=== PATIENT | female | born 1960 | race Caucasian/White ===

== ENCOUNTER 2017-04-28 20:12 | Emergency (ER) | payer MEDICAID ==
[2017-04-28 20:21] VITALS: BP 160/86
[2017-04-28] MEDS ORDERED: Sodium Chloride 0.9% 10 ML Syringe FLUSH PRN (20:25)
[2017-04-28] MEDS ORDERED: diphenhydrAMINE 50 MG/ML SDV IVPUSH ONE (20:26)
[2017-04-28] MEDS ORDERED: Metoclopramide 10 MG/2 ML SDV IVPUSH ONE (20:26)
[2017-04-28] MEDS ORDERED: HYDROmorphone 1 MG/ML Syringe IVPUSH ONE (20:27)
--- NOTE | 2017-04-28 21:50 | EDM.PDOC ---
ED HPI GENERAL MEDICAL PROBLEM - General Chief Complaint: Headache Stated Complaint: MIGRAINE Time Seen by Provider: 04/28/17 20:21 Source of Information: Reports: Patient History Limitations: Reports: No Limitations - History of Present Illness INITIAL COMMENTS - FREE TEXT/NARRATIVE: The patient presents with a headache. The pain is behind the left eye. This started this morning about 6am. The pain comes and goes. It is now severe. She denies fever, chills, cough, nausea, vomiting, chest pain, abdominal pain, numbness, or weakness. 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 She was seen in [place] and they did coils. Onset: Gradual Duration: Hour(s): (Since 6am) Location: Reports: Head Quality: Reports: Sharp Severity: Severe Improves with: Reports: None Worsens with: Reports: None Associated Symptoms: Reports: No Other Symptoms Headache Pain Score (Numeric/FACES): 10 - Related Data Allergies Allergy/AdvReac Type Severity Reaction Status Date / Time acetaminophen AdvReac Tachycardia Verified 06/04/16 13:12 [From Tylenol-Codeine #3] codeine phosphate AdvReac Tachycardia Verified 06/04/16 13:12 [From Tylenol-Codeine #3] Home Meds: Home Meds Aspirin [Aspirin EC] 81 mg PO DAILY 04/28/16 [History] Linagliptin [Tradjenta] 5 mg PO DAILY 04/28/17 [History] Losartan [Cozaar] 50 mg PO DAILY 04/28/17 [History] Metoprolol Succinate [Toprol XL] 50 mg PO DAILY 04/28/17 [History] atorvaSTATin [Lipitor] 20 mg PO BEDTIME 04/28/17 [History] metFORMIN [Glucophage XR] 1,000 mg PO BIDMEALS 04/28/17 [History] Past Medical History HEENT History: Reports: Impaired Vision, Sinusitis Cardiovascular History: Reports: Hypertension, SOB on Exertion Other Cardiovascular History: states has hole in her heart. hx of palpitations Respiratory History: Reports: Other (See Below) Other Respiratory History: sob with exertion recently Gastrointestinal History: Reports: GERD Other Gastrointestinal History: noted blood in emesis when vomited since thursday Genitourinary History: Reports: None Musculoskeletal History: Reports: Back Pain, Chronic, Neck Pain, Chronic Other Musculoskeletal History: chronic neck and back pain Neurological History: Reports: CVA Other Neuro History: states had cva in 1999 Psychiatric History: Reports: Anxiety, Panic Attack Other Psychiatric History: claustraphobia Endocrine/Metabolic History: Reports: Diabetes, Type II, Obesity/BMI 30+ Oncologic (Cancer) History: Reports: Cervix - Past Surgical History Female Surgical History: Reports: Cervical Conization, Hysterectomy, Tubal Ligation Neurological Surgical History: Reports: C-Spine, Lumbar Spine, Other (See Below) Other Neurological Surgeries/Procedures: 2 brain stents placed 2015 Musculoskeletal Surgical History: Reports: Knee Replacement Social & Family History - Family History Family Medical History: Noncontributory - Tobacco Use Smoking Status *Q: Never Smoker Years of Tobacco use: 8 Packs/Tins Daily: 0.5 Second Hand Smoke Exposure: No - Caffeine Use Caffeine Use: Reports: Coffee - Recreational Drug Use Recreational Drug Use: No - Living Situation & Occupation Living situation: Reports: , with Family Occupation: Employed ED ROS GENERAL - Review of Systems Review Of Systems: See Below Constitutional: Reports: No Symptoms HEENT: Reports: No Symptoms Respiratory: Reports: No Symptoms Cardiovascular: Reports: No Symptoms Endocrine: Reports: No Symptoms GI/Abdominal: Reports: No Symptoms : Reports: No Symptoms Musculoskeletal: Reports: No Symptoms Skin: Reports: No Symptoms Neurological: Reports: Headache - Physical Exam Exam: See Below Exam Limited By: No Limitations General Appearance: Alert, No Apparent Distress Ears: Normal External Exam Nose: Normal Inspection Head Exam: Atraumatic, Normocephalic Neck: Normal Inspection Respiratory/Chest: No Respiratory Distress, Lungs Clear, Normal Breath Sounds Cardiovascular: Regular Rate, Rhythm, No Edema, No Murmur GI/Abdominal: Soft, Non-Tender, No Organomegaly, No Mass Neuro Exam (Abbreviated): Alert, Oriented, No Motor/Sensory Deficits Course - Vital Signs Last Recorded V/S: Last Vital Signs Temp 97.1 F 04/28/17 20:18 Pulse 104 H 04/28/17 20:18 Resp 25 H 04/28/17 20:18 BP 160/86 H 04/28/17 20:18 Pulse Ox 96 04/28/17 20:18 - Orders/Labs/Meds Orders: Active Orders 24 hr Category Date Time Status Peripheral IV Care [RC] . DIRECTED Care 04/28/17 20:25 Active Head wo Cont [CT] Stat Exams 04/28/17 20:27 Taken Sodium Chloride 0.9% [Saline Flush] Med 04/28/17 20:25 Active 10 ml FLUSH ASDIRECTED PRN Peripheral IV Insertion Adult [OM.PC] Routine Oth 04/28/17 20:25 Ordered Medication Orders Sodium Chloride (Saline Flush) 10 ml FLUSH ASDIRECTED PRN PRN Reason: Keep Vein Open Last Admin: 04/28/17 21:13 Dose: 10 ml Meds: Medications Generic Name Dose Route Start Last Admin Trade Name Freq PRN Reason Stop Dose Admin Sodium Chloride 10 ml 04/28/17 20:25 04/28/17 21:13 Saline Flush FLUSH 10 ml ASDIRECTED PRN Administration Keep Vein Open Discontinued Medications Generic Name Dose Route Start Last Admin Trade Name Freq PRN Reason Stop Dose Admin Diphenhydramine HCl 50 mg 04/28/17 20:26 04/28/17 21:12 Benadryl IVPUSH 04/28/17 20:27 50 mg ONETIME ONE Administration Hydromorphone HCl 1 mg 04/28/17 20:27 04/28/17 21:13 Dilaudid IVPUSH 04/28/17 20:28 1 mg ONETIME ONE Administration Metoclopramide HCl 10 mg 04/28/17 20:26 04/28/17 21:10 Reglan IVPUSH 04/28/17 20:27 10 mg ONETIME ONE Administration - Re-Assessments/Exams Free Text/Narrative Re-Assessment/Exam: 04/28/17 21:49 I ordered an IV saline lock, reglan 10mg IV, dilaudid 1mg IV and benadryl 50mg IV. I also ordered a CT of her head. 04/28/17 21:55 The patient feels much better. She tells me that since her aneurysm she gets headaches every day. They usually do not get this bad. She is following up with Shelly Johnson next week. She will talk to her about it. She may need an MRI or neuro consult. Departure - Departure Time of Disposition: 22:00 Disposition: Home, Self-Care 01 Condition: Good Clinical Impression: Headache Qualifiers: Headache type: unspecified Headache chronicity pattern: acute headache Intractability: not intractable Qualified Code(s): R51 - Headache - Discharge Information Referrals: Floberg,Shelly M, RE[employer] ACCOUNTANT [Primary Care Provider] - 1 Week Forms: ED Department Discharge Additional Instructions: Go home to a dark quiet room and get some rest. Follow up with Shelly Johnson next week and talk to her about the headaches you are having. Please return if you are worse. - My Orders Last 24 Hours: My Active Orders 04/28/17 20:25 Peripheral IV Care [RC] . DIRECTED Sodium Chloride 0.9% [Saline Flush] 10 ml FLUSH ASDIRECTED PRN Peripheral IV Insertion Adult [OM.PC] Routine 04/28/17 20:27 Head wo Cont [CT] Stat - Assessment/Plan Last 24 Hours: My Active Orders 04/28/17 20:25 Peripheral IV Care [RC] . DIRECTED Sodium Chloride 0.9% [Saline Flush] 10 ml FLUSH ASDIRECTED PRN Peripheral IV Insertion Adult [OM.PC] Routine 04/28/17 20:27 Head wo Cont [CT] Stat
--- NOTE | 2017-04-29 07:01 | CT ---
Head CT Technique: Multiple axial sections through the brain were obtained. Intravenous contrast was not utilized. Comparison: Prior head CT study of 01/19/16. Findings: Vascular stent is identified within the left carotid siphon extending into the left M1 segment. No evidence of intracranial hemorrhage. No midline shift or mass effect is seen. Ventricles along with basal cisterns and sulci over the convexities are within normal limits for the patient's age. Small area of encephalomalacia seen within the posterior right occipital lobe which is not seen on prior exam. No other abnormal parenchymal densities are seen. Bone window settings were reviewed which show no acute calvarial abnormality. Impression: 1. Vascular stent within the left carotid siphon extending into the left M1 segment. This is an interval change from prior exam. 2. Small area of encephalomalacia within the posterior right occipital lobe which is an interval change from prior study but appears to be old and occurring in the interim from prior exam. 3. Nothing acute is identified on noncontrast head CT study. Diagnostic code #2 I agree with preliminary report issued by [facility] ([facility] preliminary report dictated on 04/28/17, 10:41 PM Central Time)
== END 2017-04-28 22:10 | disposition home or self-care (01) ==
LOC: JD.ED 20:12
DX: R51 Headache (principal); I10 Essential (primary) hypertension; K21.9 Gastro-esophageal reflux disease without esophagitis; E11.9 Type 2 diabetes mellitus without complications; E66.9 Obesity, unspecified; Z85.41 Personal history of malignant neoplasm of cervix uteri; Z96.659 Presence of unspecified artificial knee joint; Z90.710 Acquired absence of both cervix and uterus; Z98.51 Tubal ligation status; Z98.890 Other specified postprocedural states; Z88.5 Allergy status to narcotic agent; Z88.6 Allergy status to analgesic agent; Z79.84 Long term (current) use of oral hypoglycemic drugs; Z79.82 Long term (current) use of aspirin; Z79.899 Other long term (current) drug therapy; Z86.73 Personal history of transient ischemic attack (TIA), and cerebral infarction without residual deficits; Z68.33 Body mass index [BMI] 33.0-33.9, adult
CPT/HCPCS: 70450; 96374; 96375; 99284; J1170; J1200; J2765; J7050

== ENCOUNTER 2017-05-10 03:30 | Emergency (ER) | payer MEDICAID ==
[2017-05-10] MEDS ORDERED: HYDROmorphone 1 MG/ML Syringe IM ONE (03:52)
[2017-05-10] MEDS ORDERED: Ondansetron 4 MG Tab.DIS PO ONE (03:55)
--- NOTE | 2017-05-10 03:56 | EDM.PDOC ---
ED HPI GENERAL MEDICAL PROBLEM - General Chief Complaint: Headache Stated Complaint: HEADACHE Time Seen by Provider: 05/10/17 03:36 Source of Information: Reports: Patient History Limitations: Reports: No Limitations - History of Present Illness INITIAL COMMENTS - FREE TEXT/NARRATIVE: This is a 56-year-old female. Back in January 2016 she had a aneurysm that bled and a small mini stroke. She was taken care of down in [place] and she has a neurologist there as well. Apparently over the last months she's been having some headaches that seem to be getting worse and she had onset of a headache last night and this seems to have gotten worse and worse. She states that it seems to be on the left side of her face sharp pain in her eye and maybe some numbness in her left cheek. She's also been slightly nauseated but no vomiting. She comes to the ER for evaluation. She just had an MRI of her brain that showed no acute findings but she does have suggestions of an old stroke. An ultrasound of her neck and thyroid showed an enlarged right thyroid lobe and her doctor and she know about this. She is supposed to see her neurologist regarding her headaches as they seem to be getting worse. Left Headache Pain Score (Numeric/FACES): 10 - Related Data Allergies Allergy/AdvReac Type Severity Reaction Status Date / Time acetaminophen AdvReac Tachycardia Verified 05/10/17 03:44 [From Tylenol-Codeine #3] codeine phosphate AdvReac Tachycardia Verified 05/10/17 03:44 [From Tylenol-Codeine #3] Home Meds: Home Meds Aspirin [Aspirin EC] 81 mg PO DAILY 04/28/16 [History] Linagliptin [Tradjenta] 5 mg PO DAILY 04/28/17 [History] Losartan [Cozaar] 50 mg PO DAILY 04/28/17 [History] Metoprolol Succinate [Toprol XL] 50 mg PO DAILY 04/28/17 [History] atorvaSTATin [Lipitor] 20 mg PO BEDTIME 04/28/17 [History] metFORMIN [Glucophage XR] 1,000 mg PO BIDMEALS 04/28/17 [History] Levothyroxine [Synthroid] 50 mcg PO DAILY 05/10/17 [History] Past Medical History HEENT History: Reports: Impaired Vision, Sinusitis Cardiovascular History: Reports: Hypertension, SOB on Exertion Other Cardiovascular History: states has hole in her heart. hx of palpitations Respiratory History: Reports: Other (See Below) Other Respiratory History: sob with exertion recently Gastrointestinal History: Reports: GERD Other Gastrointestinal History: noted blood in emesis when vomited since thursday Genitourinary History: Reports: None Musculoskeletal History: Reports: Back Pain, Chronic, Neck Pain, Chronic Other Musculoskeletal History: chronic neck and back pain Neurological History: Reports: CVA Other Neuro History: states had cva in 1999 Psychiatric History: Reports: Anxiety, Panic Attack Other Psychiatric History: claustraphobia Endocrine/Metabolic History: Reports: Diabetes, Type II, Obesity/BMI 30+ Oncologic (Cancer) History: Reports: Cervix - Past Surgical History Female Surgical History: Reports: Cervical Conization, Hysterectomy, Tubal Ligation Neurological Surgical History: Reports: C-Spine, Lumbar Spine, Other (See Below) Other Neurological Surgeries/Procedures: 2 brain stents placed 2015 Musculoskeletal Surgical History: Reports: Knee Replacement Social & Family History - Family History Family Medical History: Noncontributory - Tobacco Use Smoking Status *Q: Never Smoker Years of Tobacco use: 8 Packs/Tins Daily: 0.5 Second Hand Smoke Exposure: No - Caffeine Use Caffeine Use: Reports: Coffee - Recreational Drug Use Recreational Drug Use: No - Living Situation & Occupation Living situation: Reports: , with Family Occupation: Employed ED ROS GENERAL - Review of Systems Review Of Systems: See Below Constitutional: Denies: Fever, Chills HEENT: Reports: Other (Enlarged thyroid) Respiratory: Reports: No Symptoms Cardiovascular: Reports: No Symptoms Endocrine: Reports: No Symptoms GI/Abdominal: Reports: No Symptoms : Reports: No Symptoms Musculoskeletal: Reports: No Symptoms Skin: Reports: No Symptoms Neurological: Reports: Headache Psychiatric: Reports: No Symptoms Hematologic/Lymphatic: Reports: No Symptoms Immunologic: Reports: No Symptoms - Physical Exam Exam: See Below Exam Limited By: No Limitations General Appearance: Alert, WD/WN, Mild Distress Eye Exam: Bilateral Eye: Normal Inspection Ears: Normal External Exam Nose: Normal Inspection Throat/Mouth: Normal Inspection, Normal Lips, Normal Voice, No Airway Compromise Head Exam: Normocephalic Neck: Supple, Other (Noted enlargement of the right thyroid lobe) Respiratory/Chest: No Respiratory Distress, Lungs Clear, Normal Breath Sounds Cardiovascular: Regular Rate, Rhythm, No Murmur Neuro Exam (Abbreviated): Alert, Oriented, Normal Cognition. No: Confused, Disoriented, Slow to Respond Back Exam: Full Range of Motion Extremities: Normal Inspection, Normal Range of Motion Psychiatric: Normal Affect, Normal Mood Skin Exam: Warm, Dry Course - Vital Signs Last Recorded V/S: Last Vital Signs Temp 97.9 F 05/10/17 03:35 Pulse 91 05/10/17 03:35 Resp 16 05/10/17 03:35 BP 155/85 H 05/10/17 03:35 Pulse Ox 97 05/10/17 03:35 - Re-Assessments/Exams Free Text/Narrative Re-Assessment/Exam: 05/10/17 03:51 I gave the patient the option to get a shot IM for pain and nausea and to go home and go to sleep or get an IV and get fluids and medications for her headache and stay here in the ER for a while. She is opted to get the shot for the pain and nausea. I did encourage her to drink lots of water since dehydration will aggravate headaches and make them worse. Departure - Departure Time of Disposition: 03:55 Disposition: Home, Self-Care 01 Condition: Fair Clinical Impression: Left-sided headache - Discharge Information Referrals: Shelly Johnson, H[employer] [Primary Care Provider] - Additional Instructions: We need get home go to sleep and sleep as long as you can, when you wake up make sure you drink lots of water to stay well hydrated, you need to follow up with your neurologist or use call him to let him know you starting to have some headaches, return to the ER if your symptoms worsen
[2017-05-10 04:37] VITALS: BP 155/88
== END 2017-05-10 04:30 | disposition home or self-care (01) ==
LOC: JD.ED 03:30
DX: R51 Headache (principal); I10 Essential (primary) hypertension; K21.9 Gastro-esophageal reflux disease without esophagitis; F41.9 Anxiety disorder, unspecified; E11.9 Type 2 diabetes mellitus without complications; E66.9 Obesity, unspecified; Z88.6 Allergy status to analgesic agent; Z88.5 Allergy status to narcotic agent; Z79.82 Long term (current) use of aspirin; Z79.899 Other long term (current) drug therapy; Z79.84 Long term (current) use of oral hypoglycemic drugs; Z86.73 Personal history of transient ischemic attack (TIA), and cerebral infarction without residual deficits; Z90.710 Acquired absence of both cervix and uterus; Z96.659 Presence of unspecified artificial knee joint; Z68.33 Body mass index [BMI] 33.0-33.9, adult
CPT/HCPCS: 96372; 99283; A9270; J1170

== ENCOUNTER → 2017-10-01 | Day surgery (SDC) | payer MEDICAID ==
[~2017-10-01] MED LIST: Phenylephrine 2.5% Ophth Soln 2 ML Bot EYEBOTH SCH
[2017-10-01] MEDS: Brimonidine 0.2% Ophth Soln 5 ML Bottle EYEBOTH SCH ×2 (10:16→11:12)
[2017-10-01 12:33] VITALS: BP 157/82
== END ==
LOC: JD.SDS 10:00
PROVIDERS: ATTEND Ophthalmology
DX: H26.493 Other secondary cataract, bilateral (principal); H35.373 Puckering of macula, bilateral; H35.342 Macular cyst, hole, or pseudohole, left eye; E11.9 Type 2 diabetes mellitus without complications; I10 Essential (primary) hypertension; E07.9 Disorder of thyroid, unspecified; Z79.82 Long term (current) use of aspirin; Z96.1 Presence of intraocular lens; Z85.41 Personal history of malignant neoplasm of cervix uteri; Z86.73 Personal history of transient ischemic attack (TIA), and cerebral infarction without residual deficits; Z79.899 Other long term (current) drug therapy

== ENCOUNTER → 2018-02-04 | Day surgery (SDC) | payer MEDICAID ==
[~2018-02-04] MED LIST changes: +Brimonidine 0.2% Ophth Soln 5 ML Bottle EYELF SCH; -Phenylephrine 2.5% Ophth Soln 2 ML Bot EYEBOTH SCH; +Phenylephrine 2.5% Ophth Soln 2 ML Bot EYELF SCH; +Tropicamide 1% Ophth Soln 3 ML Bottle EYELF SCH
[2018-02-04 12:55] VITALS: BP 125/73
== END ==
LOC: JD.SDS 11:48
PROVIDERS: ATTEND Ophthalmology
DX: H26.492 Other secondary cataract, left eye (principal); H35.3131 Nonexudative age-related macular degeneration, bilateral, early dry stage; H35.342 Macular cyst, hole, or pseudohole, left eye; H35.373 Puckering of macula, bilateral; E11.9 Type 2 diabetes mellitus without complications; E07.9 Disorder of thyroid, unspecified; C53.9 Malignant neoplasm of cervix uteri, unspecified; Z79.82 Long term (current) use of aspirin; Z79.899 Other long term (current) drug therapy; Z88.5 Allergy status to narcotic agent; Z88.8 Allergy status to other drugs, medicaments and biological substances; Z98.41 Cataract extraction status, right eye; Z98.42 Cataract extraction status, left eye; Z96.1 Presence of intraocular lens; Z98.890 Other specified postprocedural states; Z83.518 Family history of other specified eye disorder

== ENCOUNTER 2018-05-16 12:56 | Emergency (ER) | payer MEDICAID ==
[2018-05-16 13:04] VITALS: BP 150/74
[2018-05-16] MEDS ORDERED: Sodium Chloride 0.9% 10 ML Syringe FLUSH PRN (13:18)
[2018-05-16] MEDS ORDERED: Sodium Chloride 0.9% 1,000 ML IV SCH (13:30)
[2018-05-16] MEDS ORDERED: HYDROmorphone 0.5 MG/0.5 ML SYRINGE IVPUSH ONE (13:46)
[2018-05-16] MEDS ORDERED: Iopamidol 755 Mg/ML 100 ML Bottle IVPUSH ONE (14:02)
[2018-05-16] MEDS ORDERED: Sodium Chloride 0.9% 10 ML Syringe FLUSH ONE (14:02)
[2018-05-16] MEDS ORDERED: Sodium Chloride 0.9% 100 ML IV SCH (14:15)
--- NOTE | 2018-05-16 14:25 | EDM.PDOC ---
ED HPI GENERAL MEDICAL PROBLEM - General Chief Complaint: Back Pain or Injury Stated Complaint: LEFT SIDE/NECK PAIN Time Seen by Provider: 05/16/18 13:05 Source of Information: Reports: Patient History Limitations: Reports: No Limitations - History of Present Illness INITIAL COMMENTS - FREE TEXT/NARRATIVE: The patient presents from the [facility] for left sided rib and back pain. This started a few days ago. She denies any injury such as falling or lifting. She says it hurts worse to take a deep breath. She has no fever or cough. She does have some pain that radiates to her left chest and then up her back to her neck. She has no abdominal pain, nausea or vomiting. About 2 years ago she had an aneurysm and had to go to [place]. She has had no problems since. The patient has no history of DVT or PE. She has not been on any long car ride or plane ride. She has no swelling or pain in her legs. Dr King saw her at the clinic and thought she needed a CT angio of her chest. Onset: Gradual Duration: Day(s): Location: Reports: Chest, Back Quality: Reports: Sharp Severity: Severe Improves with: Reports: Immobilization Worsens with: Reports: Breathing, Movement Associated Symptoms: Reports: Chest Pain, Shortness of Breath. Denies: Cough, Fever/Chills, Headaches, Nausea/Vomiting Left Back Pain Score (Numeric/FACES): 10 - Related Data Allergies Allergy/AdvReac Type Severity Reaction Status Date / Time acetaminophen AdvReac Tachycardia Verified 02/03/18 14:55 [From Tylenol-Codeine #3] codeine phosphate AdvReac Tachycardia Verified 02/03/18 14:55 [From Tylenol-Codeine #3] Home Meds: Home Meds Aspirin [Aspirin EC] 81 mg PO DAILY 04/28/16 [History] Losartan [Cozaar] 50 mg PO DAILY 04/28/17 [History] Metoprolol Succinate [Toprol XL] 50 mg PO DAILY 04/28/17 [History] Levothyroxine [Synthroid] 50 mcg PO DAILY 05/10/17 [History] metFORMIN HCl [Metformin HCl] 1,000 mg PO DAILY 02/03/18 [History] Empagliflozin [Jardiance] 25 mg PO DAILY 05/16/18 [History] Linagliptin [Tradjenta] 5 mg PO DAILY 05/16/18 [History] atorvaSTATin Calcium [Lipitor] 20 mg PO DAILY 05/16/18 [History] Past Medical History HEENT History: Reports: Impaired Vision, Sinusitis Cardiovascular History: Reports: Hypertension, SOB on Exertion Other Cardiovascular History: states has hole in her heart. hx of palpitations Respiratory History: Reports: Other (See Below) Other Respiratory History: sob with exertion recently Gastrointestinal History: Reports: GERD Other Gastrointestinal History: noted blood in emesis when vomited since thursday Genitourinary History: Reports: None Musculoskeletal History: Reports: Back Pain, Chronic, Neck Pain, Chronic Other Musculoskeletal History: chronic neck and back pain Neurological History: Reports: CVA Other Neuro History: states had cva in 1999 Psychiatric History: Reports: Anxiety, Panic Attack Other Psychiatric History: claustraphobia Endocrine/Metabolic History: Reports: Diabetes, Type II, Obesity/BMI 30+ Oncologic (Cancer) History: Reports: Cervix - Past Surgical History Female Surgical History: Reports: Cervical Conization, Hysterectomy, Tubal Ligation Neurological Surgical History: Reports: C-Spine, Lumbar Spine, Other (See Below) Other Neurological Surgeries/Procedures: 2 brain stents placed 2015 Musculoskeletal Surgical History: Reports: Knee Replacement Social & Family History - Family History Family Medical History: Noncontributory - Tobacco Use Smoking Status *Q: Never Smoker - Caffeine Use Caffeine Use: Reports: Coffee, Soda - Recreational Drug Use Recreational Drug Use: No - Living Situation & Occupation Living situation: Reports: , with Family Occupation: Employed ED ROS GENERAL - Review of Systems Review Of Systems: See Below Constitutional: Reports: No Symptoms HEENT: Reports: No Symptoms Respiratory: Reports: Shortness of Breath. Denies: Cough Cardiovascular: Reports: Chest Pain Endocrine: Reports: No Symptoms GI/Abdominal: Reports: No Symptoms : Reports: No Symptoms Musculoskeletal: Reports: Back Pain (Left side) ED EXAM, UPPER BACK/NECK PAIN - Physical Exam Exam: See Below Exam Limited By: No Limitations General Appearance: Alert, No Apparent Distress Ears Exam: Normal External Exam Nose Exam: Normal Inspection Head Exam: Atraumatic, Normocephalic Neck Exam: Non-Tender, Normal Alignment, Normal Inspection Cardiovascular/Respiratory: Regular Rate, Rhythm, No M/R/G, Normal Peripheral Pulses, Normal Breath Sounds, No Respiratory Distress, Other (Pain upon palpation to the left lateral chest and into the left upper back) GI/Abdominal: Soft, Non-Tender, No Organomegaly, No Mass Back Exam: Normal Inspection Extremities: Normal Inspection Neurologic: No Motor/Sensory Deficits, Alert, Normal Mood/Affect, Oriented x 3 EKG INTERPRETATION EKG Date: 05/16/18 Time: 13:32 Rhythm: NSR Rate (Beats/Min): 96 [place]: Normal P-Wave: Present QRS: Normal ST-T: Normal QT: Normal Course - Vital Signs Last Recorded V/S: Last Vital Signs Temp 98.6 F 05/16/18 13:03 Pulse 96 05/16/18 13:03 Resp 20 05/16/18 13:03 BP 150/74 H 05/16/18 13:03 Pulse Ox 97 05/16/18 13:03 - Orders/Labs/Meds Orders: Active Orders 24 hr Category Date Time Status Cardiac Monitoring [RC] . DIRECTED Care 05/16/18 13:18 Active EKG Documentation Completion [RC] STAT Care 05/16/18 13:19 Active Peripheral IV Care [RC] . DIRECTED Care 05/16/18 13:19 Active Sodium Chloride 0.9% [Normal Saline] 1,000 ml Med 05/16/18 13:30 Active IV ASDIRECTED Sodium Chloride 0.9% [Normal Saline] 100 ml Med 05/16/18 14:15 Active IV ASDIRECTED Sodium Chloride 0.9% [Saline Flush] Med 05/16/18 13:18 Active 10 ml FLUSH ASDIRECTED PRN Peripheral IV Insertion Adult [OM.PC] Stat Oth 05/16/18 13:18 Ordered Medication Orders Sodium Chloride (Normal Saline) 1,000 mls @ 125 mls/hr IV ASDIRECTED LAUREANO Last Admin: 05/16/18 13:39 Dose: 125 mls/hr Sodium Chloride (Normal Saline) 100 mls @ 60 mls/hr IV ASDIRECTED LAUREANO Last Admin: 05/16/18 14:15 Dose: 60 mls/hr Sodium Chloride (Saline Flush) 10 ml FLUSH ASDIRECTED PRN PRN Reason: Keep Vein Open Last Admin: 05/16/18 13:40 Dose: 10 ml Labs: Laboratory Tests 05/16/18 05/16/18 05/16/18 Range/Units 13:45 13:45 13:45 WBC 6.05 (3.98-10.04) K/mm3 RBC 4.55 (3.98-5.22) M/mm3 Hgb 12.9 (11.2-15.7) gm/L Hct 39.1 (34.1-44.9) % MCV 85.9 (79.4-94.8) fl MCH 28.4 (25.6-32.2) pg MCHC 33.0 (32.2-35.5) g/dl RDW Std Deviation 49.2 H (36.4-46.3) fL Plt Count 159 L (182-369) K/mm3 MPV 10.6 (9.4-12.3) fl Neut % (Auto) 62.5 (34.0-71.1) % Lymph % (Auto) 28.9 (19.3-51.7) % [place] % (Auto) 7.4 (4.7-12.5) % Eos % (Auto) 0.8 (0.7-5.8) Baso % (Auto) 0.2 (0.1-1.2) % Neut # (Auto) 3.78 (1.56-6.13) K/mm3 Lymph # (Auto) 1.75 (1.18-3.74) K/mm3 [place] # (Auto) 0.45 H (0.24-0.36) K/mm3 Eos # (Auto) 0.05 (0.04-0.36) K/mm3 Baso # (Auto) 0.01 (0.01-0.08) K/mm3 D-Dimer, Quantitative 0.74 H (0.19-0.50) mg/L Sodium 144 (136-145) mEq/L Potassium 4.2 (3.5-5.1) mEq/L Chloride 106 (98-107) mEq/L Carbon Dioxide 26 (21-32) mEq/L Anion Gap 16.2 H (5-15) BUN 11 (7-18) mg/dL Creatinine 0.9 (0.55-1.02) mg/dL Est Cr Clr Drug Dosing 51.41 mL/min Estimated GFR (MDRD) > 60 (>60) mL/min BUN/Creatinine Ratio 12.2 L (14-18) Glucose 124 H (74-106) mg/dL Calcium 9.4 (8.5-10.1) mg/dL Total Bilirubin 1.0 (0.2-1.0) mg/dL AST 21 (15-37) U/L ALT 42 (14-59) U/L Alkaline Phosphatase 114 (46-116) U/L Troponin I < 0.017 (0.00-0.056) ng/mL Total Protein 8.1 (6.4-8.2) g/dl Albumin 4.0 (3.4-5.0) g/dl Globulin 4.1 gm/dL Albumin/Globulin Ratio 1.0 (1-2) TSH 3rd Generation (0.358-3.74) uIU/mL 05/16/18 Range/Units 13:45 WBC (3.98-10.04) K/mm3 RBC (3.98-5.22) M/mm3 Hgb (11.2-15.7) gm/L Hct (34.1-44.9) % MCV (79.4-94.8) fl MCH (25.6-32.2) pg MCHC (32.2-35.5) g/dl RDW Std Deviation (36.4-46.3) fL Plt Count (182-369) K/mm3 MPV (9.4-12.3) fl Neut % (Auto) (34.0-71.1) % Lymph % (Auto) (19.3-51.7) % [place] % (Auto) (4.7-12.5) % Eos % (Auto) (0.7-5.8) Baso % (Auto) (0.1-1.2) % Neut # (Auto) (1.56-6.13) K/mm3 Lymph # (Auto) (1.18-3.74) K/mm3 [place] # (Auto) (0.24-0.36) K/mm3 Eos # (Auto) (0.04-0.36) K/mm3 Baso # (Auto) (0.01-0.08) K/mm3 D-Dimer, Quantitative (0.19-0.50) mg/L Sodium (136-145) mEq/L Potassium (3.5-5.1) mEq/L Chloride (98-107) mEq/L Carbon Dioxide (21-32) mEq/L Anion Gap (5-15) BUN (7-18) mg/dL Creatinine (0.55-1.02) mg/dL Est Cr Clr Drug Dosing mL/min Estimated GFR (MDRD) (>60) mL/min BUN/Creatinine Ratio (14-18) Glucose (74-106) mg/dL Calcium (8.5-10.1) mg/dL Total Bilirubin (0.2-1.0) mg/dL AST (15-37) U/L ALT (14-59) U/L Alkaline Phosphatase (46-116) U/L Troponin I (0.00-0.056) ng/mL Total Protein (6.4-8.2) g/dl Albumin (3.4-5.0) g/dl Globulin gm/dL Albumin/Globulin Ratio (1-2) TSH 3rd Generation 1.721 (0.358-3.74) uIU/mL Meds: Medications Generic Name Dose Route Start Last Admin Trade Name Freq PRN Reason Stop Dose Admin Sodium Chloride 1,000 mls @ 125 mls/hr 05/16/18 13:30 05/16/18 13:39 Normal Saline IV 125 mls/hr ASDIRECTED LAUREANO Administration Sodium Chloride 100 mls @ 60 mls/hr 05/16/18 14:15 05/16/18 14:15 Normal Saline IV 60 mls/hr ASDIRECTED LAUREANO Administration Sodium Chloride 10 ml 05/16/18 13:18 05/16/18 13:40 Saline Flush FLUSH 10 ml ASDIRECTED PRN Administration Keep Vein Open Discontinued Medications Generic Name Dose Route Start Last Admin Trade Name Freq PRN Reason Stop Dose Admin Hydromorphone HCl 0.5 mg 05/16/18 13:46 05/16/18 14:46 Dilaudid IVPUSH 05/16/18 13:47 0.5 mg ONETIME ONE Administration Iopamidol 100 ml 05/16/18 14:02 05/16/18 14:15 Isovue-370 (76%) IVPUSH 05/16/18 14:03 100 ml ONETIME ONE Administration Sodium Chloride 10 ml 05/16/18 14:02 05/16/18 14:15 Saline Flush FLUSH 05/16/18 14:03 10 ml ONETIME ONE Administration - Re-Assessments/Exams Free Text/Narrative Re-Assessment/Exam: 05/16/18 14:28 I ordered an IV NS at 125mL/hr, dilaudid 0.5mg IV, labs, chest CT and EKG. Her EKG shows a NSR with no acute changes. Her CBC looks good. I am waiting on the rest of her labs and CT. 05/16/18 16:04 Her CBC looks good. Her CMP looks good. Her troponin is negative. Her CT shows slightly less than optimal opacification of the pulmonary arteries. No findings of pulmonary embolism within the main or segmental branches but smaller subsegmental pulmonary emboli could be missed. Small left-sided pleural effusion. 3 cm nodule within the right lobe of the thyroid gland. The patient is hypothyroid. She has never had an US of her thyroid. I will put in a US order for that. That has nothing to do with her current pain. I feel this is musculoskeletal in nature. Departure - Departure Time of Disposition: 16:45 Disposition: Home, Self-Care 01 Condition: Good Clinical Impression: Chest wall pain, Upper back pain on left side, Thyroid nodule - Discharge Information *PRESCRIPTION DRUG MONITORING PROGRAM REVIEWED*: No *COPY OF PRESCRIPTION DRUG MONITORING REPORT IN PATIENT CHIQUI: No Referrals: Shelly Johnson, INTERNAL MEDICINE PHYSICIAN ASSISTANT [Primary Care Provider] - 1 Week Forms: ED Department Discharge Additional Instructions: Take motrin or aleve for pain. Take the ultram for pain. Our radiology department will call you with a time to come in for the ultrasound of the nodule in your thyroid. Please return if you are worse. - My Orders Last 24 Hours: My Active Orders 05/16/18 13:18 Cardiac Monitoring [RC] . DIRECTED Sodium Chloride 0.9% [Saline Flush] 10 ml FLUSH ASDIRECTED PRN Peripheral IV Insertion Adult [OM.PC] Stat 05/16/18 13:19 EKG Documentation Completion [RC] STAT Peripheral IV Care [RC] . DIRECTED 05/16/18 13:30 Sodium Chloride 0.9% [Normal Saline] 1,000 ml IV ASDIRECTED 05/16/18 14:15 Sodium Chloride 0.9% [Normal Saline] 100 ml IV ASDIRECTED - Assessment/Plan Last 24 Hours: My Active Orders 05/16/18 13:18 Cardiac Monitoring [RC] . DIRECTED Sodium Chloride 0.9% [Saline Flush] 10 ml FLUSH ASDIRECTED PRN Peripheral IV Insertion Adult [OM.PC] Stat 05/16/18 13:19 EKG Documentation Completion [RC] STAT Peripheral IV Care [RC] . DIRECTED 05/16/18 13:30 Sodium Chloride 0.9% [Normal Saline] 1,000 ml IV ASDIRECTED 05/16/18 14:15 Sodium Chloride 0.9% [Normal Saline] 100 ml IV ASDIRECTED
--- NOTE | 2018-05-16 15:50 | CT ---
CT chest Technique: Multiple axial sections were obtained from above the lung apices inferiorly through the lung bases. Intravenous contrast was utilized. Study performed as a pulmonary angiogram protocol. Findings: Pulmonary arteries are not optimally opacified. Right thyroid nodule is identified measuring approximately 3.0 cm. Pulmonary arteries show no filling defects within the main or segmental branches. Smaller subsegmental pulmonary emboli could easily be missed. Very minimal left sided pleural effusion is seen. Mediastinum and hilar regions show no adenopathy or mass. Lungs shows mild atelectasis is noted within both bases. Lungs otherwise are clear. Bone window settings were reviewed which show scattered degenerative change within the spine. No acute osseous abnormality is seen. Impression: 1. Slightly less than optimal opacification of the pulmonary arteries. No findings of pulmonary embolism within the main or segmental branches but smaller subsegmental pulmonary emboli could be missed. 2. Small left-sided pleural effusion. 3. 3.0 cm nodule within the right lobe of the thyroid gland. Diagnostic code #3
== END 2018-05-16 17:15 | disposition home or self-care (01) ==
LOC: JD.ED 12:56
DX: R07.89 Other chest pain (principal); M54.6 Pain in thoracic spine; E04.1 Nontoxic single thyroid nodule; I10 Essential (primary) hypertension; E11.9 Type 2 diabetes mellitus without complications; Z79.82 Long term (current) use of aspirin; Z79.899 Other long term (current) drug therapy; Z79.84 Long term (current) use of oral hypoglycemic drugs
CPT/HCPCS: 36415; 71275; 80053; 84443; 84484; 85025; 85379; 93005; 96361; 96374; 99284; J1170; J7030; J7040; J7050; Q9967

== ENCOUNTER 2019-01-27 18:42 | Emergency (ER) | payer MEDICAID ==
[2019-01-27 18:57] VITALS: BP 139/124
[2019-01-27] MEDS ORDERED: HYDROmorphone 0.5 MG/0.5 ML Syringe IM ONE (19:26)
--- NOTE | 2019-01-27 19:38 | EDM.PDOC ---
ED HPI GENERAL MEDICAL PROBLEM - General Chief Complaint: Lower Extremity Injury/Pain Stated Complaint: LEG PAIN FROM FALL Time Seen by Provider: 01/27/19 19:17 Source of Information: Reports: Patient History Limitations: Reports: No Limitations - History of Present Illness INITIAL COMMENTS - FREE TEXT/NARRATIVE: 58-year-old female presents for evaluation and treatment of left leg pain. Patient reports that she was walking down some stairs when her left leg gave out. She states that she fell down about 3 stairs. Sounds like she landed on the left lateral leg. She denies any head trauma. No headaches or neck pain. No chest pain. She reports that she is having significant pain to the entire left leg but is primarily in the proximal tibia and tibia. She repeats over and over that she broke her leg. States she cannot bear weight. Onset: Today Location: Reports: Lower Extremity, Left Left Leg Pain Score (Numeric/FACES): 10 - Related Data Allergies Allergy/AdvReac Type Severity Reaction Status Date / Time acetaminophen AdvReac Tachycardia Verified 01/27/19 18:56 [From Tylenol-Codeine #3] codeine phosphate AdvReac Tachycardia Verified 01/27/19 18:56 [From Tylenol-Codeine #3] Home Meds: Home Meds Aspirin [Aspirin EC] 81 mg PO DAILY 04/28/16 [History] Losartan [Cozaar] 50 mg PO DAILY 04/28/17 [History] Metoprolol Succinate [Toprol XL] 50 mg PO DAILY 04/28/17 [History] Levothyroxine [Synthroid] 50 mcg PO DAILY 05/10/17 [History] metFORMIN HCl [Metformin HCl] 1,000 mg PO DAILY 02/03/18 [History] Empagliflozin [Jardiance] 25 mg PO DAILY 05/16/18 [History] Linagliptin [Tradjenta] 5 mg PO DAILY 05/16/18 [History] atorvaSTATin Calcium [Lipitor] 20 mg PO DAILY 05/16/18 [History] Past Medical History HEENT History: Reports: Impaired Vision, Sinusitis Cardiovascular History: Reports: Hypertension, SOB on Exertion Other Cardiovascular History: states has hole in her heart. hx of palpitations Respiratory History: Reports: Other (See Below) Other Respiratory History: sob with exertion recently Gastrointestinal History: Reports: GERD Other Gastrointestinal History: noted blood in emesis when vomited since thursday Genitourinary History: Reports: None Musculoskeletal History: Reports: Back Pain, Chronic, Neck Pain, Chronic Other Musculoskeletal History: chronic neck and back pain Neurological History: Reports: CVA Other Neuro History: states had cva in 1999 Psychiatric History: Reports: Anxiety, Panic Attack Other Psychiatric History: claustraphobia Endocrine/Metabolic History: Reports: Diabetes, Type II, Obesity/BMI 30+ Oncologic (Cancer) History: Reports: Cervix - Past Surgical History Female Surgical History: Reports: Cervical Conization, Hysterectomy, Tubal Ligation Neurological Surgical History: Reports: C-Spine, Lumbar Spine, Other (See Below) Other Neurological Surgeries/Procedures: 2 brain stents placed 2015 Musculoskeletal Surgical History: Reports: Knee Replacement Social & Family History - Family History Family Medical History: Noncontributory - Tobacco Use Smoking Status *Q: Never Smoker Second Hand Smoke Exposure: No - Caffeine Use Caffeine Use: Reports: None - Recreational Drug Use Recreational Drug Use: No - Living Situation & Occupation Living situation: Reports: , with Family Occupation: Employed Review of Systems - Review of Systems Review Of Systems: See Below Respiratory: Denies: Shortness of Breath Cardiovascular: Denies: Chest Pain GI/Abdominal: Denies: Nausea, Vomiting Musculoskeletal: Reports: Leg Pain (left). Denies: Neck Pain Neurological: Reports: Difficulty Walking. Denies: Headache, Syncope ED EXAM, GENERAL - Physical Exam Exam: See Below Exam Limited By: No Limitations General Appearance: Alert, WD/WN, Moderate Distress Eye Exam: Bilateral Eye: Normal Inspection, PERRL Throat/Mouth: Normal Inspection, Normal Voice, No Airway Compromise Neck: Normal Inspection, Supple, Non-Tender Respiratory/Chest: No Respiratory Distress, Lungs Clear, Normal Breath Sounds Cardiovascular: Normal Peripheral Pulses, Regular Rate, Rhythm, No Murmur Extremities: Normal Inspection (no obvious deformity), Normal Range of Motion, Normal Capillary Refill, Other (tenderness to palpation to the dorsal foot, proximal tibia/fibula and distal femur) Neurological: Alert, Oriented, Normal Cognition Psychiatric: Normal Affect, Normal Mood Skin Exam: Warm, Dry, Normal Color Course - Vital Signs Last Recorded V/S: Last Vital Signs Temp 99.2 F 01/27/19 18:55 Pulse 87 01/27/19 18:55 Resp 20 01/27/19 18:55 BP 139/124 H 01/27/19 18:55 Pulse Ox 96 01/27/19 18:55 - Orders/Labs/Meds Meds: Medications Discontinued Medications Generic Name Dose Route Start Last Admin Trade Name Mc PRN Reason Stop Dose Admin Hydromorphone HCl 0.5 mg 01/27/19 19:26 01/27/19 19:33 Dilaudid IM 01/27/19 19:27 0.5 mg ONETIME ONE Administration - Radiology Interpretation Free Text/Narrative:: xrays of the left foot, tib/fib, femur and hips and pelvis shows no acute fractures or dislocations - Re-Assessments/Exams Free Text/Narrative Re-Assessment/Exam: 01/27/19 21:10 Reviewed the xray results with te patient. Will get crutches due to significant pain and difficulty baring weight. Discharge instructions as documented. Departure - Departure Time of Disposition: 21:12 Disposition: Home, Self-Care 01 Condition: Good Clinical Impression: Fall, Leg pain - Discharge Information *PRESCRIPTION DRUG MONITORING PROGRAM REVIEWED*: No *COPY OF PRESCRIPTION DRUG MONITORING REPORT IN PATIENT CHIQUI: No Instructions: Musculoskeletal Pain Referrals: Shelly Johnson INTERNET RESEARCHER [Primary Care Provider] - Forms: ED Department Discharge Additional Instructions: You were given medication in the ER that can affect your ability to drive and operate machinery. Do not drive or operate machinery within 10 hours of taking perception narcotic pain medication. Recommend using the crutches for the next few days. Ice and elevate the sore leg to help with swelling as much as you're able to. [id number] ibuprofen as needed for pain relief. Expect Some soreness the next few days. If your symptoms persist beyond 10 days follow-up with your primary care provider. Please return to the ER if your symptoms change or worsen.
--- NOTE | 2019-01-28 06:08 | CR ---
Left foot: Four views of the left foot were obtained. Comparison: No previous foot exam. Joint spaces within the foot are preserved. Very minimal plantar spur is seen. Minimal spurring is noted within the first MTP joint. No acute fracture, dislocation or other bony abnormality is seen. Impression: 1. Slight degenerative change. 2. Nothing acute is appreciated on left foot exam. Diagnostic code #2
--- NOTE | 2019-01-28 06:08 | CR ---
Left femur: AP and lateral views of the left femur were obtained. Spur is noted off the superior patella. Slight osteophytes are noted off the medial and lateral knee joint. No fracture or other bony abnormality is seen. Impression: 1. Slight degenerative change. Nothing acute is appreciated on left femur study. Diagnostic code #2
--- NOTE | 2019-01-28 07:05 | CR ---
Left tibia and fibula: AP and lateral views left tibia and fibula were obtained. Slight spurring is again noted off the knee joint. No fracture or other bony abnormality is identified. Impression: 1. Slight degenerative change within the knee. 2. Left tibia and fibula study is otherwise unremarkable. Diagnostic code #2
--- NOTE | 2019-01-28 07:05 | CR ---
Pelvis and left hip: AP view of the pelvis was obtained as well as AP and lateral views of the left hip. Joint spaces within both hips are maintained. Sacroiliac joints are unremarkable. Incidental bone island is noted within the intertrochanteric region of the left hip. No acute fracture or dislocation is seen. Impression: 1. Incidental finding. Nothing acute is appreciated. Diagnostic code #2
== END 2019-01-27 21:20 | disposition home or self-care (01) ==
LOC: JD.ED 18:42
DX: M79.605 Pain in left leg (principal); I10 Essential (primary) hypertension; K21.9 Gastro-esophageal reflux disease without esophagitis; E11.9 Type 2 diabetes mellitus without complications; Z79.84 Long term (current) use of oral hypoglycemic drugs; F41.0 Panic disorder [episodic paroxysmal anxiety]; Z79.899 Other long term (current) drug therapy; Z79.82 Long term (current) use of aspirin; Z88.8 Allergy status to other drugs, medicaments and biological substances; W10.9XXA Fall (on) (from) unspecified stairs and steps, initial encounter
CPT/HCPCS: 73501; 73552; 73590; 73630; 96372; 99283; J1170

== ENCOUNTER 2020-02-12 18:10 | Emergency (ER) | payer MEDICAID ==
--- NOTE | 2020-02-12 18:40 | EDM.PDOC ---
ED HPI GENERAL MEDICAL PROBLEM - General Chief Complaint: Lower Extremity Injury/Pain Stated Complaint: RT HIP AND LEG PAIN AND ANKLE SWELLING Time Seen by Provider: 02/12/20 18:31 Source of Information: Reports: Patient, RN Notes Reviewed History Limitations: Reports: No Limitations - History of Present Illness INITIAL COMMENTS - FREE TEXT/NARRATIVE: Patient is a 59-year-old female who presents to the ED for the evaluation of right hip/leg pain, and ankle swelling. Patient notes that for the past week she has been having issues with right hip pain that radiates down her right leg. She did see her primary care provider, Jessie Johnson on , and states that she had x-rays taken but there was no abnormalities appreciated. Patient states that she was also be placed on some medications but she never got the prescription, she is not sure if we have sent this or not. She was also supposed to have a referral to PT, there is was called her Thursday and she did not receive a call. Patient notes that the pain is getting worse, and is unbearable. She is taking Advil at home, but this is not seeming to help much at all either. Patient complains of some right ankle swelling as well. Patient denies any numbness or tingling into her toes. She was wheeled back to her room with a wheelchair. 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 Right Hip Pain Score (Numeric/FACES): 10 - Related Data Allergies Allergy/AdvReac Type Severity Reaction Status Date / Time estradiol [From Estrace] Allergy Severe Itching Verified 02/12/20 18:48 acetaminophen AdvReac Severe Tachycardia Verified 02/12/20 18:48 [From Tylenol-Codeine #3] codeine phosphate AdvReac Severe Tachycardia Verified 02/12/20 18:48 [From Tylenol-Codeine #3] Home Meds: Home Meds Aspirin [Aspirin EC] 81 mg PO DAILY 04/28/16 [History] Losartan [Cozaar] 100 mg PO DAILY 04/28/17 [History] Metoprolol Succinate [Toprol XL] 50 mg PO DAILY 04/28/17 [History] metFORMIN HCl [Metformin HCl] 1,000 mg PO BID 02/03/18 [History] atorvaSTATin Calcium [Lipitor] 20 mg PO BEDTIME 05/16/18 [History] Acetaminophen [Tylenol] 325 mg PO Q4H PRN 04/04/19 [History] Beta-Carotene(A)-Vits C,E/Mins [Vision Vitamins] 1 tab PO DAILY 04/04/19 [ History] DULoxetine [Cymbalta] 60 mg PO DAILY 04/04/19 [History] Empagliflozin [Jardiance] 25 mg PO DAILY 04/04/19 [History] Levothyroxine 75 mcg PO ACBREAKFAST 04/04/19 [History] Exenatide Microspheres [Bydureon Pen] 2 mg SQ WEEKLY 02/12/20 [History] Orphenadrine [Norflex] 100 mg PO BID 02/12/20 [History] predniSONE 20 mg PO ASDIRECTED #15 tab 02/12/20 [Rx] traMADol [Ultram] 50 mg PO Q6H PRN #12 tab 02/12/20 [Rx] Past Medical History HEENT History: Reports: Cataract, Glaucoma Cardiovascular History: Reports: Heart Murmur, High Cholesterol, Hypertension, Other (See Below) Other Cardiovascular History: Benign paroxysmal positional vertigo Respiratory History: Reports: Sleep Apnea Gastrointestinal History: Reports: GERD Genitourinary History: Reports: UTI, Recurrent 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 DESIGN INTERN History: Reports: Other GRAPHIC DESIGN INTERN History: Atrophic vaginitis, vaginal itching, malignant neoplasm of cervix Musculoskeletal History: Reports: Back Pain, Chronic, Neck Pain, Chronic Other Musculoskeletal History: Low back strain, myalgia, polyarthritis Neurological History: Reports: CVA, Headaches, Chronic, Migraines, Other (See Below) Other Neuro History: 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, intracranial aneurysm Psychiatric History: Reports: Anxiety, Depression Other Psychiatric History: claustraphobia Endocrine/Metabolic History: Reports: Diabetes, Type II, Hypothyroidism, Other ( See Below) Other Endocrine/Metabolic History: Thyroid enlargement, thyroid nodule Oncologic (Cancer) History: Reports: Cervix Other Oncologic History: Malignant neoplasm of cervix - Infectious Disease History Infectious Disease History: Reports: Chicken Pox, Measles, Mumps - Past Surgical History HEENT Surgical History: Reports: Cataract Surgery Female Surgical History: Reports: Section, Hysterectomy Neurological Surgical History: Reports: Other (See Below) Other Neurological Surgeries/Procedures: stents Social & Family History - Family History Family Medical History: Noncontributory - Tobacco Use Smoking Status *Q: Never Smoker Second Hand Smoke Exposure: No - Caffeine Use Caffeine Use: Reports: Coffee - Recreational Drug Use Recreational Drug Use: No - Living Situation & Occupation Living situation: Reports: , with Family Occupation: Employed Review of Systems - Review of Systems Review Of Systems: Comprehensive ROS is negative, except as noted in HPI. ED EXAM, GENERAL - Physical Exam Exam: See Below Exam Limited By: No Limitations General Appearance: Alert, WD/WN, No Apparent Distress (pt does appear to be in mild pain, but is also very dramatic in presentation) Respiratory/Chest: No Respiratory Distress, Lungs Clear, Normal Breath Sounds, No Accessory Muscle Use, Chest Non-Tender Cardiovascular: Normal Peripheral Pulses, Regular Rate, Rhythm, No Murmur Peripheral Pulses: 3+: Dorsalis Pedis (L), Dorsalis Pedis (R) Back Exam: Normal Inspection, Decreased Range of Motion (d/t pain, she states that it is most painful over the right SI/ iliac crest, and radiates down leg) Extremities: Normal Inspection, No Pedal Edema, Normal Capillary Refill, Limited Range of Motion (R straight leg test is positive) Neurological: Alert, Oriented, Normal Cognition, No Motor/Sensory Deficits Psychiatric: Normal Affect, Normal Mood Skin Exam: Warm, Dry, Intact, Normal Color, No Rash Course - Vital Signs Last Recorded V/S: Last Vital Signs Temp 98.2 F 02/12/20 18:31 Pulse 106 H 02/12/20 18:31 Resp 18 02/12/20 18:31 BP 170/100 H 02/12/20 18:31 Pulse Ox 98 02/12/20 18:31 - Orders/Labs/Meds Meds: Medications Discontinued Medications Generic Name Dose Route Start Last Admin Trade Name Mc PRN Reason Stop Dose Admin Ketorolac Tromethamine 60 mg 02/12/20 18:50 02/12/20 18:54 Toradol IM 02/12/20 18:51 60 mg ONETIME ONE Administration Tramadol HCl 50 mg 02/12/20 19:29 02/12/20 19:38 Ultram PO 02/12/20 19:30 50 mg ONETIME ONE Administration Tramadol HCl 50 mg 02/12/20 20:17 Ultram PO 02/12/20 20:18 ONETIME ONE - Re-Assessments/Exams Free Text/Narrative Re-Assessment/Exam: 02/12/20 18:58 Patient presents to the ED for evaluation of her right lower leg pain. She will be given a 60 mg injection of Toradol to see if this helps her pain. She is already on Norflex at home, plan is to send her home with a burst of prednisone for suspected sciatica in nature have her follow-up with Jessie Johnson for the PT referral tomorrow. 02/12/20 19:28 RN states that the patient's pain has not improved much I will try 1 tablet of tramadol to see if this helps. 02/12/20 20:16 Patient reports pretty good pain relief from the tramadol, will discharge home with a few tablets, and one from the ER tonight to take later tonight if needed. Departure - Departure Time of Disposition: 20:19 Disposition: Home, Self-Care 01 Condition: Good Clinical Impression: Lower back pain Qualifiers: Chronicity: acute Back pain laterality: right Sciatica presence: with sciatica Sciatica laterality: sciatica of right side Qualified Code(s): M54.41 - Lumbago with sciatica, right side - Discharge Information *PRESCRIPTION DRUG MONITORING PROGRAM REVIEWED*: Yes *COPY OF PRESCRIPTION DRUG MONITORING REPORT IN PATIENT CHIQUI: No Prescriptions: predniSONE 20 mg PO ASDIRECTED #15 tab traMADol [Ultram] 50 mg PO Q6H PRN #12 tab PRN Reason: Pain Instructions: Back Exercises, [id number] Referrals: Shelly Johnson, TOY DEPARTMENT MANAGER [Primary Care Provider] - Forms: ED Department Discharge Additional Instructions: You have been evaluated in the ED for your right hip/leg pain. You were treated with an IM injection of Toradol, which is an anti-inflammatory , this seemed to help relieve most of your pain. You will be given a prescription for prednisone, please take 1 tab 2 times a day for the next 5 days , then 1 tab once a day for the next 5 days. This will total 10 days. Please be aware that the prednisone can cause some blood sugar fluctuations. You were given a prescription for tramadol for pain management, please take 1 tab every 6 hours as needed for further pain relief. This was electronically prescribed to the [facility]. You will need to go there, tomorrow Thursday morning and pick this up and take as prescribed. Please use ice/heat as tolerated to the affected area. Please try to elevate the affected area to relieve swelling. Recommend you call our clinic tomorrow and to follow-up on the PT referral that Jessie Johnson had put in for you last week, to make sure that they did not get lost in communication. Please return to ED if your symptoms should change or worsen. Sepsis Event Note - Evaluation Sepsis Screening Result: No Definite Risk - Focused Exam Vital Signs: Vital Signs Temp Pulse Resp BP Pulse Ox 02/12/20 18:31 98.2 F 106 H 18 170/100 H 98 Date Exam was Performed: 02/12/20 Time Exam was Performed: 20:19
[2020-02-12] MEDS ORDERED: Ketorolac 60 MG/2 ML SDV IM ONE (18:50)
[2020-02-12] MEDS ORDERED: traMADol 50 MG Tab PO ONE ×2 (19:29→20:17)
[2020-02-12 20:48] VITALS: BP 136/70; PULSE 89
== END 2020-02-12 20:40 | disposition home or self-care (01) ==
LOC: JD.ED 18:10
DX: M54.41 Lumbago with sciatica, right side (principal); I10 Essential (primary) hypertension; E78.00 Pure hypercholesterolemia, unspecified; E11.9 Type 2 diabetes mellitus without complications; E03.9 Hypothyroidism, unspecified; F41.9 Anxiety disorder, unspecified; F32.9 Major depressive disorder, single episode, unspecified; G43.909 Migraine, unspecified, not intractable, without status migrainosus; Z79.84 Long term (current) use of oral hypoglycemic drugs; Z79.82 Long term (current) use of aspirin; Z79.899 Other long term (current) drug therapy; Z86.73 Personal history of transient ischemic attack (TIA), and cerebral infarction without residual deficits
CPT/HCPCS: 96372; 99283; A9270; J1885

== ENCOUNTER 2020-02-29 12:34 | Emergency (ER) | payer MEDICAID ==
[2020-02-29] MEDS ORDERED: Sodium Chloride 0.9% 1,000 ML IV STA (13:00)
[2020-02-29] MEDS ORDERED: Sodium Chloride 0.9% 10 ML Syringe FLUSH PRN (13:00)
--- NOTE | 2020-02-29 14:51 | EDM.PDOC ---
ED HPI GENERAL MEDICAL PROBLEM - General Chief Complaint: Diabetic Complaint Stated Complaint: HIGH BLOOD SUGAR 393 UNABLE TO GET IT TO DROP Time Seen by Provider: 02/29/20 12:48 Source of Information: Reports: Patient History Limitations: Reports: No Limitations - History of Present Illness INITIAL COMMENTS - FREE TEXT/NARRATIVE: The patient presents with hyperglycemia. She is type II diabetic on oral medications. She is on prednisone for leg pain. She took her last dose today. Her blood sugars have been in the 200s and 300s. She has a headache and dizziness. She is still having pain to her leg. She is going to physical therapy. She has no fever, chills, cough, congestion, chest pain, or shortness of breath. Onset: Gradual Duration: Day(s): Severity: Moderate Improves with: Reports: None Worsens with: Reports: None Associated Symptoms: Reports: No Other Symptoms Headache Pain Score (Numeric/FACES): 4 - Related Data Allergies Allergy/AdvReac Type Severity Reaction Status Date / Time estradiol [From Estrace] Allergy Severe Itching Verified 02/12/20 18:48 acetaminophen AdvReac Severe Tachycardia Verified 02/12/20 18:48 [From Tylenol-Codeine #3] codeine phosphate AdvReac Severe Tachycardia Verified 02/12/20 18:48 [From Tylenol-Codeine #3] Home Meds: Home Meds Aspirin [Aspirin EC] 81 mg PO DAILY 04/28/16 [History] Losartan [Cozaar] 100 mg PO DAILY 04/28/17 [History] Metoprolol Succinate [Toprol XL] 50 mg PO DAILY 04/28/17 [History] metFORMIN HCl [Metformin HCl] 1,000 mg PO BID 02/03/18 [History] atorvaSTATin Calcium [Lipitor] 20 mg PO BEDTIME 05/16/18 [History] Acetaminophen [Tylenol] 325 mg PO Q4H PRN 04/04/19 [History] Beta-Carotene(A)-Vits C,E/Mins [Vision Vitamins] 1 tab PO DAILY 04/04/19 [History] DULoxetine [Cymbalta] 60 mg PO DAILY 04/04/19 [History] Empagliflozin [Jardiance] 25 mg PO DAILY 04/04/19 [History] Levothyroxine 75 mcg PO ACBREAKFAST 04/04/19 [History] Exenatide Microspheres [Bydureon Pen] 2 mg SQ WEEKLY 02/12/20 [History] Orphenadrine [Norflex] 100 mg PO BID 02/12/20 [History] predniSONE 20 mg PO ASDIRECTED #15 tab 02/12/20 [Rx] traMADol [Ultram] 50 mg PO Q6H PRN #12 tab 02/12/20 [Rx] Past Medical History HEENT History: Reports: Cataract, Glaucoma Cardiovascular History: Reports: Heart Murmur, High Cholesterol, Hypertension, Other (See Below) Other Cardiovascular History: Benign paroxysmal positional vertigo Respiratory History: Reports: Sleep Apnea Other Respiratory History: Cough Gastrointestinal History: Reports: GERD Other Gastrointestinal History: Acute LUQ pain Genitourinary History: Reports: UTI, Recurrent Other Genitourinary History: Bacteruria, dysuria 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: Atrophic vaginitis, vaginal itching, malignant neoplasm of cervix Musculoskeletal History: Reports: Back Pain, Chronic, Neck Pain, Chronic Other Musculoskeletal History: Low back strain, myalgia, polyarthritis Neurological History: Reports: CVA, Headaches, Chronic, Migraines, Other (See Below) Other Neuro History: 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, intracranial aneurysm Psychiatric History: Reports: Anxiety, Depression Other Psychiatric History: claustraphobia Endocrine/Metabolic History: Reports: Diabetes, Type II, Hypothyroidism, Other (See Below) Other Endocrine/Metabolic History: Thyroid enlargement, thyroid nodule Hematologic History: Reports: None Immunologic History: Reports: None Oncologic (Cancer) History: Reports: Cervix Other Oncologic History: Malignant neoplasm of cervix Dermatologic History: Reports: None - Infectious Disease History Infectious Disease History: Reports: Chicken Pox, Measles, Mumps - Past Surgical History Head Surgeries/Procedures: Reports: None HEENT Surgical History: Reports: Cataract Surgery Female Surgical History: Reports: Section, Hysterectomy Neurological Surgical History: Reports: Other (See Below) Other Neurological Surgeries/Procedures: stents Dermatological Surgical History: Reports: None Social & Family History - Family History Family Medical History: Noncontributory - Tobacco Use Smoking Status *Q: Never Smoker - Caffeine Use Caffeine Use: Reports: Coffee, Soda - Recreational Drug Use Recreational Drug Use: No - Living Situation & Occupation Living situation: Reports: , with Family Occupation: Employed ED ROS GENERAL - Review of Systems Review Of Systems: See Below Constitutional: Reports: No Symptoms HEENT: Reports: No Symptoms Respiratory: Reports: No Symptoms Cardiovascular: Reports: No Symptoms Endocrine: Reports: No Symptoms GI/Abdominal: Reports: No Symptoms : Reports: No Symptoms Musculoskeletal: Reports: No Symptoms Skin: Reports: No Symptoms Neurological: Reports: Dizziness ED EXAM GENERAL NO PERIP PULSE - Physical Exam Exam: See Below Exam Limited By: No Limitations General Appearance: Alert, No Apparent Distress Ears: Normal External Exam Nose: Normal Inspection Head: Atraumatic, Normocephalic Neck: Normal Inspection Respiratory/Chest: No Respiratory Distress, Lungs Clear, Normal Breath Sounds Cardiovascular: Regular Rate, Rhythm, No Edema, No Murmur GI/Abdominal: Soft, Non-Tender, No Organomegaly, No Mass Course - Vital Signs Last Recorded V/S: Last Vital Signs Temp 97.7 F 02/29/20 12:58 Pulse 93 02/29/20 12:58 Resp 18 02/29/20 12:58 BP 125/67 02/29/20 12:58 Pulse Ox 96 02/29/20 12:58 - Orders/Labs/Meds Orders: Active Orders 24 hr Category Date Time Status Peripheral IV Care [RC] . DIRECTED Care 02/29/20 13:01 Active Sodium Chloride 0.9% [Saline Flush] Med 02/29/20 13:00 Active 10 ml FLUSH ASDIRECTED PRN Peripheral IV Insertion Adult [OM.PC] Stat Oth 02/29/20 13:00 Ordered Medication Orders Sodium Chloride (Saline Flush) 10 ml FLUSH ASDIRECTED PRN PRN Reason: Keep Vein Open Last Admin: 02/29/20 13:25 Dose: 10 ml Documented by: YARIEL Labs: Laboratory Tests 02/29/20 02/29/20 02/29/20 Range/Units 13:23 13:24 13:25 WBC 6.69 (3.98-10.04) K/mm3 RBC 4.44 (3.98-5.22) M/mm3 Hgb 12.7 (11.2-15.7) gm/dl Hct 39.4 (34.1-44.9) % MCV 88.7 (79.4-94.8) fl MCH 28.6 (25.6-32.2) pg MCHC 32.2 (32.2-35.5) g/dl RDW Std Deviation 49.9 H (36.4-46.3) fL Plt Count 244 (182-369) K/mm3 MPV 10.9 (9.4-12.3) fl Neut % (Auto) 83.4 H (34.0-71.1) % Lymph % (Auto) 14.8 L (19.3-51.7) % Bowman % (Auto) 1.6 L (4.7-12.5) % Eos % (Auto) 0 L (0.7-5.8) Baso % (Auto) 0.1 (0.1-1.2) % Neut # (Auto) 5.57 (1.56-6.13) K/mm3 Lymph # (Auto) 0.99 L (1.18-3.74) K/mm3 Bowman # (Auto) 0.11 L (0.24-0.36) K/mm3 Eos # (Auto) 0.00 L (0.04-0.36) K/mm3 Baso # (Auto) 0.01 (0.01-0.08) K/mm3 VBG pH 7.37 (7.30-7.40) Sodium (136-145) mEq/L Potassium (3.5-5.1) mEq/L Chloride (98-107) mEq/L Carbon Dioxide (21-32) mEq/L Anion Gap (5-15) BUN (7-18) mg/dL Creatinine (0.55-1.02) mg/dL Est Cr Clr Drug Dosing mL/min Estimated GFR (MDRD) (>60) mL/min BUN/Creatinine Ratio (14-18) Glucose (74-106) mg/dL POC Glucose 287 H (70-105) mg/dL Serum Osmolality (280-300) mosm/kg Calcium (8.5-10.1) mg/dL Total Bilirubin (0.2-1.0) mg/dL AST (15-37) U/L ALT (14-59) U/L Alkaline Phosphatase (46-116) U/L Total Protein (6.4-8.2) g/dl Albumin (3.4-5.0) g/dl Globulin gm/dL Albumin/Globulin Ratio (1-2) Ketones (0.0-0.3) mM 02/29/20 02/29/20 Range/Units 13:25 13:25 WBC (3.98-10.04) K/mm3 RBC (3.98-5.22) M/mm3 Hgb (11.2-15.7) gm/dl Hct (34.1-44.9) % MCV (79.4-94.8) fl MCH (25.6-32.2) pg MCHC (32.2-35.5) g/dl RDW Std Deviation (36.4-46.3) fL Plt Count (182-369) K/mm3 MPV (9.4-12.3) fl Neut % (Auto) (34.0-71.1) % Lymph % (Auto) (19.3-51.7) % Bowman % (Auto) (4.7-12.5) % Eos % (Auto) (0.7-5.8) Baso % (Auto) (0.1-1.2) % Neut # (Auto) (1.56-6.13) K/mm3 Lymph # (Auto) (1.18-3.74) K/mm3 Bowman # (Auto) (0.24-0.36) K/mm3 Eos # (Auto) (0.04-0.36) K/mm3 Baso # (Auto) (0.01-0.08) K/mm3 VBG pH (7.30-7.40) Sodium 139 (136-145) mEq/L Potassium 4.0 (3.5-5.1) mEq/L Chloride 104 (98-107) mEq/L Carbon Dioxide 19 L (21-32) mEq/L Anion Gap 20.0 H (5-15) BUN 19 H (7-18) mg/dL Creatinine 1.1 H (0.55-1.02) mg/dL Est Cr Clr Drug Dosing 43.02 mL/min Estimated GFR (MDRD) 51 (>60) mL/min BUN/Creatinine Ratio 17.3 (14-18) Glucose 321 H (74-106) mg/dL POC Glucose (70-105) mg/dL Serum Osmolality 310 H (280-300) mosm/kg Calcium 9.2 (8.5-10.1) mg/dL Total Bilirubin 1.0 (0.2-1.0) mg/dL AST 16 (15-37) U/L ALT 42 (14-59) U/L Alkaline Phosphatase 93 (46-116) U/L Total Protein 7.5 (6.4-8.2) g/dl Albumin 3.8 (3.4-5.0) g/dl Globulin 3.7 gm/dL Albumin/Globulin Ratio 1.0 (1-2) Ketones 0.22 (0.0-0.3) mM Meds: Medications Generic Name Dose Route Start Last Admin Trade Name Freq PRN Reason Stop Dose Admin Sodium Chloride 10 ml 02/29/20 13:00 02/29/20 13:25 Saline Flush FLUSH 10 ml ASDIRECTED PRN Administration Keep Vein Open Discontinued Medications Generic Name Dose Route Start Last Admin Trade Name Freq PRN Reason Stop Dose Admin Sodium Chloride 1,000 mls @ 1,000 mls/hr 02/29/20 13:00 02/29/20 13:25 Normal Saline IV 02/29/20 13:59 1,000 mls/hr .BOLUS STA Administration - Re-Assessments/Exams Free Text/Narrative Re-Assessment/Exam: 02/29/20 14:55 I ordered an IV NS 1L bolus, labs and venous pH. Her CBC looks good. Her venous pH is normal at 7.37. Her anion gap is 20. Her creatinine is 1.1. Her glucose is elevated at 321. Her ketones are 0.22. Her blood sugars will be elevated for a few more days due to the prednisone. She is not in DKA or hyperosmoler hyperglycemic state. Departure - Departure Time of Disposition: 15:00 Disposition: Home, Self-Care 01 Condition: Good Clinical Impression: Hyperglycemia - Discharge Information *PRESCRIPTION DRUG MONITORING PROGRAM REVIEWED*: Not Applicable *COPY OF PRESCRIPTION DRUG MONITORING REPORT IN PATIENT CHIQUI: Not Applicable Referrals: Shelly Johnson BULB WEEDER [Primary Care Provider] - 1 Week Forms: ED Department Discharge Additional Instructions: Take your medication as prescribed. The prednisone will keep your blood sugar elevated for a few more days and then it should start to go down. Please return if you are worse. Sepsis Event Note (ED) - Evaluation Sepsis Screening Result: No Definite Risk - Focused Exam Vital Signs: Vital Signs Temp Pulse Resp BP Pulse Ox 02/29/20 12:58 97.7 F 93 18 125/67 96 - My Orders Last 24 Hours: My Active Orders 02/29/20 13:00 Sodium Chloride 0.9% [Saline Flush] 10 ml FLUSH ASDIRECTED PRN Peripheral IV Insertion Adult [OM.PC] Stat 02/29/20 13:01 Peripheral IV Care [RC] . DIRECTED - Assessment/Plan Last 24 Hours: My Active Orders 02/29/20 13:00 Sodium Chloride 0.9% [Saline Flush] 10 ml FLUSH ASDIRECTED PRN Peripheral IV Insertion Adult [OM.PC] Stat 02/29/20 13:01 Peripheral IV Care [RC] . DIRECTED
[2020-02-29 15:44] VITALS: BP 125/71; PULSE 88
== END 2020-02-29 15:40 | disposition home or self-care (01) ==
LOC: JD.ED 12:34
DX: E11.65 Type 2 diabetes mellitus with hyperglycemia (principal); E78.00 Pure hypercholesterolemia, unspecified; I10 Essential (primary) hypertension; E03.9 Hypothyroidism, unspecified; F41.9 Anxiety disorder, unspecified; F32.9 Major depressive disorder, single episode, unspecified; M13.0 Polyarthritis, unspecified; Z88.8 Allergy status to other drugs, medicaments and biological substances; Z88.6 Allergy status to analgesic agent; Z88.5 Allergy status to narcotic agent; Z79.82 Long term (current) use of aspirin; Z79.84 Long term (current) use of oral hypoglycemic drugs; Z79.899 Other long term (current) drug therapy; Z86.73 Personal history of transient ischemic attack (TIA), and cerebral infarction without residual deficits
CPT/HCPCS: 36415; 80053; 82009; 82800; 82962; 83930; 85025; 96360; 99284; J7030; 99283

== ENCOUNTER 2021-01-21 11:38 | Emergency (ER) | payer MEDICAID ==
[2021-01-21 11:48] VITALS: BP 154/80; PULSE 86
--- NOTE | 2021-01-21 12:22 | CR ---
Chest: PA view of the chest was obtained. Comparison: Prior chest x-ray of 01/16/21. Heart size and mediastinum are normal. Lungs are clear with no acute parenchymal change. Scattered degenerative change is seen within the spine. Impression: 1. Nothing acute is seen on PA chest x-ray. Diagnostic code #2
--- NOTE | 2021-01-21 13:15 | EDM.PDOC ---
ED HPI GENERAL MEDICAL PROBLEM - General Chief Complaint: Chest Pain Stated Complaint: CHEST PAIN X 2 DAYS Time Seen by Provider: 01/21/21 11:40 Source of Information: Reports: Patient, RN Notes Reviewed History Limitations: Reports: No Limitations - History of Present Illness INITIAL COMMENTS - FREE TEXT/NARRATIVE: Patient is a 60-year-old female presenting to the emergency department with complaints of 2 episodes of left-sided chest pain. First episode occurred yesterday morning and lasted approximately 30 minutes in duration after which time it self resolved. She had a similar episode this morning around 8:00. Describes it as a sharp, left-sided chest pain with radiation into her neck. This also lasted about 30 minutes and then self resolved. Patient does report feeling increasingly short of breath for the last few weeks. She was seen in the clinic on Thursday for this complaint and started on an albuterol inhaler. She does have a history of type 2 diabetes, high blood pressure, and hypothyroidism. Denies any history of OH or blood clots. At the time of exam and presentation to ER, she is having no chest pain. She states that she had plan to see her primary care provider in the clinic, however they recommended she come to the ER for evaluation. Left Chest Pain Score (Numeric/FACES): 7 - Related Data Allergies Allergy/AdvReac Type Severity Reaction Status Date / Time estradiol [From Estrace] Allergy Severe Itching Verified 01/21/21 11:48 codeine phosphate AdvReac Severe Tachycardia Verified 01/21/21 11:48 [From Tylenol-Codeine #3] Home Meds: Home Meds Aspirin [Aspirin EC] 81 mg PO DAILY 04/28/16 [History] Losartan [Cozaar] 100 mg PO DAILY 04/28/17 [History] Metoprolol Succinate [Toprol XL] 50 mg PO DAILY 04/28/17 [History] metFORMIN HCl [Metformin HCl] 1,000 mg PO BID 02/03/18 [History] atorvaSTATin Calcium [Lipitor] 20 mg PO BEDTIME 05/16/18 [History] Acetaminophen [Tylenol] 325 mg PO Q4H PRN 04/04/19 [History] Beta-Carotene(A)-Vits C,E/Mins [Vision Vitamins] 1 tab PO DAILY 04/04/19 [History] Empagliflozin [Jardiance] 25 mg PO DAILY 04/04/19 [History] Levothyroxine 75 mcg PO ACBREAKFAST 04/04/19 [History] Albuterol Sulfate [Proair Hfa] 1 puff INH Q4H PRN 01/21/21 [History] Past Medical History HEENT History: Reports: Cataract, Glaucoma Cardiovascular History: Reports: Heart Murmur, High Cholesterol, Hypertension, Other (See Below) Other Cardiovascular History: Benign paroxysmal positional vertigo Respiratory History: Reports: Sleep Apnea Other Respiratory History: Cough Gastrointestinal History: Reports: GERD Other Gastrointestinal History: Acute LUQ pain Genitourinary History: Reports: UTI, Recurrent Other Genitourinary History: Bacteruria, dysuria CUSHION FILLER History: Reports: Other CUSHION FILLER History: Atrophic vaginitis, vaginal itching, malignant neoplasm of cervix Musculoskeletal History: Reports: Back Pain, Chronic, Neck Pain, Chronic Other Musculoskeletal History: Low back strain, myalgia, polyarthritis Neurological History: Reports: CVA, Headaches, Chronic, Migraines, Other (See Below) Other Neuro History: 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, intracranial aneurysm Psychiatric History: Reports: Anxiety, Depression Other Psychiatric History: claustraphobia Endocrine/Metabolic History: Reports: Diabetes, Type II, Hypothyroidism, Other (See Below) Other Endocrine/Metabolic History: Thyroid enlargement, thyroid nodule Hematologic History: Reports: None Immunologic History: Reports: None Oncologic (Cancer) History: Reports: Cervix Other Oncologic History: Malignant neoplasm of cervix Dermatologic History: Reports: None - Infectious Disease History Infectious Disease History: Reports: Chicken Pox, Measles, Mumps - Past Surgical History Head Surgeries/Procedures: Reports: None HEENT Surgical History: Reports: Cataract Surgery Cardiovascular Surgical History: Reports: None Respiratory Surgical History: Reports: None GI Surgical History: Reports: None Female Surgical History: Reports: Section, Hysterectomy Endocrine Surgical History: Reports: None Neurological Surgical History: Reports: Other (See Below) Other Neurological Surgeries/Procedures: stents Musculoskeletal Surgical History: Reports: None Dermatological Surgical History: Reports: None Social & Family History - Family History Family Medical History: No Pertinent Family History - Tobacco Use Tobacco Use Status *Q: Never Tobacco User - Caffeine Use Caffeine Use: Reports: Coffee, Soda - Recreational Drug Use Recreational Drug Use: No - Living Situation & Occupation Living situation: Reports: , with Family Occupation: Employed ED ROS GENERAL - Review of Systems Review Of Systems: See Below Constitutional: Reports: No Symptoms. Denies: Fever, Chills, Weakness HEENT: Reports: No Symptoms Respiratory: Reports: Shortness of Breath. Denies: Wheezing, Cough Cardiovascular: Reports: Chest Pain. Denies: Lightheadedness, Palpitations, Syncope Endocrine: Reports: No Symptoms GI/Abdominal: Reports: No Symptoms : Reports: No Symptoms Musculoskeletal: Reports: No Symptoms Skin: Reports: No Symptoms Neurological: Reports: No Symptoms Psychiatric: Reports: No Symptoms Hematologic/Lymphatic: Reports: No Symptoms Immunologic: Reports: No Symptoms ED EXAM, GENERAL - Physical Exam Exam: See Below Exam Limited By: No Limitations General Appearance: Alert, WD/WN, No Apparent Distress Respiratory/Chest: No Respiratory Distress, Lungs Clear, Normal Breath Sounds, No Accessory Muscle Use, Chest Non-Tender Cardiovascular: Normal Peripheral Pulses, Regular Rate, Rhythm, No Edema, No Gallop, No JVD, No Murmur, No Rub GI/Abdominal: Normal Bowel Sounds, Soft, Non-Tender, No Organomegaly, No Distention, No Abnormal Bruit, No Mass Extremities: Normal Inspection, Normal Range of Motion, Non-Tender, Normal Capillary Refill, No Pedal Edema Neurological: Alert, Oriented, CN II-XII Intact, Normal Cognition, Normal Gait, Normal Reflexes, No Motor/Sensory Deficits Psychiatric: Normal Affect, Normal Mood Skin Exam: Warm, Dry, Intact, Normal Color, No Rash #1 Interpretation EKG Date: 01/21/21 Time: 11:45 Rhythm: NSR Rate (Beats/Min): 85 [place]: LAD-Left [place]cas[place] Deviation (Borderline) P-Wave: Present QRS: Normal ST-T: Normal QT: Normal EKG Interpretation Comments: Sinus rhythm at 85 Borderline left axis deviation Low voltage, precordial leads Abnormal R wave progression, late transition EKG interpreted by Dr. Daniel MD Course - Vital Signs Last Recorded V/S: Last Vital Signs Temp 97.5 F 01/21/21 11:45 Pulse 86 01/21/21 11:45 Resp 27 H 01/21/21 11:45 BP 154/80 H 01/21/21 11:45 Pulse Ox 97 01/21/21 11:45 - Orders/Labs/Meds Orders: Active Orders 24 hr Category Date Time Status EKG Documentation Completion [RC] STAT Care 01/21/21 11:48 Active Labs: Laboratory Tests 01/21/21 01/21/21 01/21/21 Range/Units 12:10 12:10 12:10 WBC 5.57 (3.98-10.04) K/mm3 RBC 3.98 (3.98-5.22) M/mm3 Hgb 11.6 (11.2-15.7) gm/dl Hct 36.0 (34.1-44.9) % MCV 90.5 (79.4-94.8) fl MCH 29.1 (25.6-32.2) pg MCHC 32.2 (32.2-35.5) g/dl RDW Std Deviation 50.0 H (36.4-46.3) fL Plt Count 226 (182-369) K/mm3 MPV 9.9 (9.4-12.3) fl Neutrophils % (Manual) 54 (40-60) % Band Neutrophils % 0 (0-10) % Lymphocytes % (Manual) 38 (20-40) % Atypical Lymphs % 0 % Monocytes % (Manual) 7 (2-10) % Eosinophils % (Manual) 1 (0.7-5.8) % Basophils % (Manual) 0 L (0.1-1.2) Platelet Estimate Adequate RBC Morph Comment Normal PT 10.4 (9.7-12.0) SECONDS INR 0.97 APTT 21.4 L (21.7-31.4) SECONDS D-Dimer, Quantitative 0.30 (0.19-0.50) mg/L Sodium (136-145) mEq/L Potassium (3.5-5.1) mEq/L Chloride (98-107) mEq/L Carbon Dioxide (21-32) mEq/L Anion Gap (5-15) BUN (7-18) mg/dL Creatinine (0.55-1.02) mg/dL Est Cr Clr Drug Dosing mL/min Estimated GFR (MDRD) (>60) mL/min BUN/Creatinine Ratio (14-18) Glucose (80-115) mg/dL Calcium (8.5-10.1) mg/dL Magnesium (1.8-2.4) mg/dl Total Bilirubin (0.2-1.0) mg/dL AST (15-37) U/L ALT (14-59) U/L Alkaline Phosphatase (46-116) U/L Troponin I (0.00-0.056) ng/mL NT-Pro-B Natriuret Pep (0-125) pg/mL Total Protein (6.4-8.2) g/dl Albumin (3.4-5.0) g/dl Globulin gm/dL Albumin/Globulin Ratio (1-2) 01/21/21 01/21/21 Range/Units 12:10 12:10 WBC (3.98-10.04) K/mm3 RBC (3.98-5.22) M/mm3 Hgb (11.2-15.7) gm/dl Hct (34.1-44.9) % MCV (79.4-94.8) fl MCH (25.6-32.2) pg MCHC (32.2-35.5) g/dl RDW Std Deviation (36.4-46.3) fL Plt Count (182-369) K/mm3 MPV (9.4-12.3) fl Neutrophils % (Manual) (40-60) % Band Neutrophils % (0-10) % Lymphocytes % (Manual) (20-40) % Atypical Lymphs % % Monocytes % (Manual) (2-10) % Eosinophils % (Manual) (0.7-5.8) % Basophils % (Manual) (0.1-1.2) Platelet Estimate RBC Morph Comment PT (9.7-12.0) SECONDS INR APTT (21.7-31.4) SECONDS D-Dimer, Quantitative (0.19-0.50) mg/L Sodium 143 (136-145) mEq/L Potassium 3.8 (3.5-5.1) mEq/L Chloride 105 (98-107) mEq/L Carbon Dioxide 26 (21-32) mEq/L Anion Gap 15.8 H (5-15) BUN 18 (7-18) mg/dL Creatinine 0.9 (0.55-1.02) mg/dL Est Cr Clr Drug Dosing 51.92 mL/min Estimated GFR (MDRD) > 60 (>60) mL/min BUN/Creatinine Ratio 20.0 H (14-18) Glucose 165 H (80-115) mg/dL Calcium 8.6 (8.5-10.1) mg/dL Magnesium 1.8 (1.8-2.4) mg/dl Total Bilirubin 0.8 (0.2-1.0) mg/dL AST 17 (15-37) U/L ALT 33 (14-59) U/L Alkaline Phosphatase 82 (46-116) U/L Troponin I < 0.017 (0.00-0.056) ng/mL NT-Pro-B Natriuret Pep 20 (0-125) pg/mL Total Protein 7.2 (6.4-8.2) g/dl Albumin 3.6 (3.4-5.0) g/dl Globulin 3.6 gm/dL Albumin/Globulin Ratio 1.0 (1-2) - Re-Assessments/Exams Free Text/Narrative Re-Assessment/Exam: Patient is a 60-year-old female presenting to the emergency department for evaluation of having 2 episodes of left-sided chest pain, each lasting approximately 30 minutes. At the time my exam, she is having no pain. Her episode this morning occurred around 8 AM. Denies any history of OH. She has b een having increasing shortness of breath for the last few weeks which she was evaluated in the clinic for on Thursday and started lily inhaler. Exam is grossly unremarkable. I have ordered blood work, EKG, and chest x-ray. 01/21/21 13:15 Hematology was found to be grossly unremarkable. Troponin is undetectable. D- dimer is normal at 0.30. EKG shows a normal sinus rhythm with no evidence of acute ischemia. Chest x-ray shows no acute abnormalities. Results discussed with patient. Recommend follow-up with her primary care provider for ongoing management of shortness of breath. Discussed return precautions. Discharge instructions as documented. Departure - Departure Time of Disposition: 13:29 Disposition: Home, Self-Care 01 Condition: Good Clinical Impression: Atypical chest pain Instructions: Nonspecific Chest Pain, Adult Referrals: Shelly Johnson [facility] [Primary Care Provider] - Forms: ED Department Discharge Additional Instructions: You were seen in the emergency department today for evaluation with regards to 2 episodes of left-sided chest pain. Work-up included blood work, an EKG of your heart, and a chest x-ray. Results of your work-up were found to be normal. You are not having a heart attack and you do not have a blood clot in your lungs. While the exact cause of the chest pain is unknown, muscle spasms and chest wall inflammation are possibilities. Recommend follow-up with your primary care provider at her next available visit. Return to ER for any new or worsening symptoms of concern. Sepsis Event Note (ED) - Evaluation Sepsis Screening Result: No Definite Risk - Focused Exam Vital Signs: Vital Signs Temp Pulse Resp BP Pulse Ox 01/21/21 11:45 97.5 F 86 27 H 154/80 H 97 - My Orders Last 24 Hours: My Active Orders 01/21/21 11:48 EKG Documentation Completion [RC] STAT - Assessment/Plan Last 24 Hours: My Active Orders 01/21/21 11:48 EKG Documentation Completion [RC] STAT
== END 2021-01-21 13:40 | disposition home or self-care (01) ==
LOC: JD.ED 11:38
DX: R07.89 Other chest pain (principal); R06.02 Shortness of breath; E78.00 Pure hypercholesterolemia, unspecified; I10 Essential (primary) hypertension; E11.9 Type 2 diabetes mellitus without complications; E03.9 Hypothyroidism, unspecified; Z88.8 Allergy status to other drugs, medicaments and biological substances; Z88.5 Allergy status to narcotic agent; Z79.82 Long term (current) use of aspirin; Z79.84 Long term (current) use of oral hypoglycemic drugs; Z79.899 Other long term (current) drug therapy
CPT/HCPCS: 36415; 71046; 71046-26; 80053; 83735; 83880; 84484; 85007; 85027; 85379; 85610; 85730; 93005; 99283; 99285-25

== ENCOUNTER 2021-03-28 16:42 | Emergency (ER) | payer MEDICAID ==
[2021-03-28 17:24] VITALS: BP 190/88; PULSE 103
[2021-03-28] MEDS ORDERED: Sodium Chloride 0.9% 10 ML Syringe FLUSH PRN (17:35)
--- NOTE | 2021-03-28 17:59 | EDM.PDOC ---
ED HPI GENERAL MEDICAL PROBLEM - General Chief Complaint: Headache Stated Complaint: MIGRAINE Time Seen by Provider: 03/28/21 17:30 Source of Information: Reports: Patient History Limitations: Reports: No Limitations - History of Present Illness INITIAL COMMENTS - FREE TEXT/NARRATIVE: 60-year-old female presents the emergency department today with complaints of a headache. She states that she does have a history of migraine headache and she felt like she was developing one yesterday. She states that headache hip pain progressively has gotten worse. She does complain of photophobia and phonophobia. She denies seeing any aura. She states that she has a history of stroke and aneurysm as well and feels that this is similar to the pain she had when she was having an aneurysm. She reports the pain is located in the parietal and occipital area. She denies any recent fever, chills, diarrhea, abdominal pain, cough, sore throat. She states she has had nausea and vomiting since the headache initially started. She denies any blurred vision, double vision or then sensation of the room spinning. She denies any dizziness or difficulty with ambulation. Headache Pain Score (Numeric/FACES): 10 - Related Data Allergies Allergy/AdvReac Type Severity Reaction Status Date / Time estradiol [From Estrace] Allergy Severe Itching Verified 03/28/21 17:24 codeine phosphate AdvReac Severe Tachycardia Verified 03/28/21 17:24 [From Tylenol-Codeine #3] Home Meds: Home Meds Aspirin [Aspirin EC] 81 mg PO DAILY 04/28/16 [History] Losartan [Cozaar] 100 mg PO DAILY 04/28/17 [History] Metoprolol Succinate [Toprol XL] 50 mg PO DAILY 04/28/17 [History] metFORMIN HCl [Metformin HCl] 1,000 mg PO BID 02/03/18 [History] atorvaSTATin Calcium [Lipitor] 20 mg PO BEDTIME 05/16/18 [History] Acetaminophen [Tylenol] 325 mg PO Q4H PRN 04/04/19 [History] Beta-Carotene(A)-Vits C,E/Mins [Vision Vitamins] 1 tab PO DAILY 04/04/19 [History] Empagliflozin [Jardiance] 25 mg PO DAILY 04/04/19 [History] Levothyroxine 75 mcg PO ACBREAKFAST 04/04/19 [History] Albuterol Sulfate [Proair Hfa] 1 puff INH Q4H PRN 01/21/21 [History] Past Medical History HEENT History: Reports: Cataract, Glaucoma Cardiovascular History: Reports: Aneurysm, Heart Murmur, High Cholesterol, Hypertension, Other (See Below) Other Cardiovascular History: Benign paroxysmal positional vertigo Respiratory History: Reports: Sleep Apnea Other Respiratory History: Cough Gastrointestinal History: Reports: GERD Other Gastrointestinal History: Acute LUQ pain Genitourinary History: Reports: UTI, Recurrent Other Genitourinary History: Bacteruria, dysuria CLINIC RECEPTIONIST History: Reports: Other CLINIC RECEPTIONIST History: Atrophic vaginitis, vaginal itching, malignant neoplasm of cervix Musculoskeletal History: Reports: Back Pain, Chronic, Neck Pain, Chronic Other Musculoskeletal History: Low back strain, myalgia, polyarthritis Neurological History: Reports: CVA, Headaches, Chronic, Migraines, Other (See Below) Other Neuro History: 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, intracranial aneurysm Psychiatric History: Reports: Anxiety, Depression Other Psychiatric History: claustraphobia Endocrine/Metabolic History: Reports: Diabetes, Type II, Hypothyroidism, Other (See Below) Other Endocrine/Metabolic History: Thyroid enlargement, thyroid nodule Hematologic History: Reports: None Immunologic History: Reports: None Oncologic (Cancer) History: Reports: Cervix Other Oncologic History: Malignant neoplasm of cervix Dermatologic History: Reports: None - Infectious Disease History Infectious Disease History: Reports: Chicken Pox, Measles, Mumps - Past Surgical History Head Surgeries/Procedures: Reports: None HEENT Surgical History: Reports: Cataract Surgery GI Surgical History: Reports: None Female Surgical History: Reports: Section, Hysterectomy Endocrine Surgical History: Reports: None Neurological Surgical History: Reports: Other (See Below) Other Neurological Surgeries/Procedures: stents Musculoskeletal Surgical History: Reports: None Social & Family History - Family History Family Medical History: No Pertinent Family History - Tobacco Use Tobacco Use Status *Q: Never Tobacco User Second Hand Smoke Exposure: No - Caffeine Use Caffeine Use: Reports: Coffee - Recreational Drug Use Recreational Drug Use: No - Living Situation & Occupation Living situation: Reports: , with Family Occupation: Employed ED ROS GENERAL - Review of Systems Review Of Systems: Comprehensive ROS is negative, except as noted in HPI. - Physical Exam Exam: See Below Exam Limited By: No Limitations General Appearance: Alert, WD/WN, Moderate Distress (Able to keep her eyes open during my assessment) Eye Exam: Bilateral Eye: EOMI, PERRL Ears: Normal External Exam, Hearing Grossly Normal Nose: Normal Inspection Throat/Mouth: Normal Inspection, Normal Lips, Normal Voice, No Airway Compromise Head Exam: Atraumatic, Normocephalic Neck: Normal Inspection, Supple, Non-Tender Respiratory/Chest: No Respiratory Distress, Lungs Clear, Normal Breath Sounds, No Accessory Muscle Use, Chest Non-Tender Cardiovascular: Normal Peripheral Pulses, Regular Rate, Rhythm, No Edema, No Murmur GI/Abdominal: Normal Bowel Sounds, Soft, Non-Tender, No Distention (Female) Exam: Deferred Rectal (Female) Exam: Deferred Neuro Exam (Abbreviated): Alert, Oriented, CN II-XII Intact, Normal Cognition, Normal Gait Back Exam: Normal Inspection Extremities: Normal Inspection, Normal Range of Motion, Non-Tender, No Pedal Edema, Normal Capillary Refill Psychiatric: Normal Affect, Normal Mood Skin Exam: Warm, Dry, Intact, Normal Color, No Rash Course - Vital Signs Text/Narrative:: As stated above, patient presents with a headache that started yesterday with associated nausea and vomiting. She does have a history of migraine headache although she also has a history of aneurysm and stroke. Full neuro assessment is unremarkable. I have elected to order a CT of the head to rule these out. Once I have that I will medicate her for her headache pain. I have also ordered baseline labs. Nursing staff will place an IV and she will be given IV fluids. Last Recorded V/S: Last Vital Signs Temp 98.2 F 03/28/21 17:20 Pulse 103 H 03/28/21 17:20 Resp 20 03/28/21 17:20 BP 190/88 H 03/28/21 17:20 Pulse Ox 93 L 03/28/21 17:20 - Orders/Labs/Meds Orders: Active Orders 24 hr Category Date Time Status Sodium Chloride 0.9% [Saline Flush] Med 03/28/21 17:35 Active 10 ml FLUSH ASDIRECTED PRN Saline Lock Insert [OM.PC] Stat Oth 03/28/21 17:35 Ordered Medication Orders Sodium Chloride (Sodium Chloride 0.9% 10 Ml Syringe) 10 ml FLUSH ASDIRECTED PRN PRN Reason: Keep Vein Open Last Admin: 03/28/21 17:56 Dose: 10 ml Documented by: OSIRIS Labs: Laboratory Tests 03/28/21 03/28/21 Range/Units 17:45 17:45 WBC 5.32 (3.98-10.04) K/mm3 RBC 4.27 (3.98-5.22) M/mm3 Hgb 12.4 (11.2-15.7) gm/dl Hct 38.2 (34.1-44.9) % MCV 89.5 (79.4-94.8) fl MCH 29.0 (25.6-32.2) pg MCHC 32.5 (32.2-35.5) g/dl RDW Std Deviation 48.2 H (36.4-46.3) fL Plt Count 256 (182-369) K/mm3 MPV 11.7 (9.4-12.3) fl Neut % (Auto) 51.6 (34.0-71.1) % Lymph % (Auto) 39.8 (19.3-51.7) % [place] % (Auto) 7.5 (4.7-12.5) % Eos % (Auto) 0.9 (0.7-5.8) Baso % (Auto) 0.2 (0.1-1.2) % Neut # (Auto) 2.74 (1.56-6.13) K/mm3 Lymph # (Auto) 2.12 (1.18-3.74) K/mm3 [place] # (Auto) 0.40 H (0.24-0.36) K/mm3 Eos # (Auto) 0.05 (0.04-0.36) K/mm3 Baso # (Auto) 0.01 (0.01-0.08) K/mm3 Manual Slide Review Normal smear Sodium 147 H (136-145) mEq/L Potassium 3.8 (3.5-5.1) mEq/L Chloride 107 (98-107) mEq/L Carbon Dioxide 27 (21-32) mEq/L Anion Gap 16.8 H (5-15) BUN 14 (7-18) mg/dL Creatinine 0.9 (0.55-1.02) mg/dL Est Cr Clr Drug Dosing 51.92 mL/min Estimated GFR (MDRD) > 60 (>60) mL/min BUN/Creatinine Ratio 15.6 (14-18) Glucose 96 (70-99) mg/dL Calcium 8.8 (8.5-10.1) mg/dL Magnesium 1.5 L (1.8-2.4) mg/dL Total Bilirubin 0.7 (0.2-1.0) mg/dL AST 15 (15-37) U/L ALT 26 (14-59) U/L Alkaline Phosphatase 88 (46-116) U/L Total Protein 7.4 (6.4-8.2) g/dl Albumin 3.8 (3.4-5.0) g/dl Globulin 3.6 gm/dL Albumin/Globulin Ratio 1.1 (1-2) Meds: Medications Generic Name Dose Route Start Last Admin Trade Name Freq PRN Reason Stop Dose Admin Sodium Chloride 10 ml 03/28/21 17:35 03/28/21 17:56 Sodium Chloride 0.9% 10 Ml Syringe FLUSH 10 ml ASDIRECTED PRN Administration Keep Vein Open Discontinued Medications Generic Name Dose Route Start Last Admin Trade Name Freq PRN Reason Stop Dose Admin Diphenhydramine HCl 50 mg 03/28/21 18:35 03/28/21 18:51 Diphenhydramine 50 Mg/Ml Sdv IVPUSH 03/28/21 18:36 50 mg ONETIME ONE Administration Sodium Chloride 1,000 mls @ 999 mls/hr 03/28/21 18:35 03/28/21 18:49 Normal Saline IV 03/28/21 19:35 999 mls/hr ONETIME ONE Administration Ketorolac Tromethamine 30 mg 03/28/21 18:35 03/28/21 18:50 Ketorolac 30 Mg/Ml Sdv IVPUSH 03/28/21 18:36 30 mg ONETIME ONE Administration Lorazepam 0.5 mg 03/28/21 19:28 03/28/21 19:34 Lorazepam 2 Mg/Ml Sdv IVPUSH 03/28/21 19:29 0.5 mg ONETIME ONE Administration Magnesium Oxide 400 mg 03/28/21 18:40 Magnesium Oxide 400 Mg Tab PO 03/28/21 18:41 ONETIME ONE Metoclopramide HCl 5 mg 03/28/21 18:35 03/28/21 18:49 Metoclopramide 10 Mg/2 Ml Sdv IVPUSH 03/28/21 18:36 5 mg ONETIME ONE Administration - Re-Assessments/Exams Free Text/Narrative Re-Assessment/Exam: 03/28/21 18:[address] the head comparison previous head CT study of 7: Stent is seen on the left side which extends from the carotid siphon into the left M1 segment. This is stable from prior head CT study. Ventricles along with basal cisterns and sulci over the convexities appear within normal limits for the patient's age. Mild widening of the right sylvian fissure which is stable findings from prior exam. Slight area of diminished density is seen within this area which is also stable. There is an area of encephalomalacia within the posterior right occipital lobe which is also stable. No other abdominal wall parenchymal densities are seen. No evidence of intracranial hemorrhage is seen. No midline shift or mass-effect is seen. Bone window settings were reviewed which show no acute calvarial abnormality. Visualized mastoid sinuses and paranasal sinuses show nothing acute. I have ordered for the patient to receive 1 L normal saline bolus. Reglan, Toradol, and Benadryl for treatment of migraine headache. 03/28/21 18:40 Hematology reveals a WBC of 5.32, hemoglobin 12.4, hematocrit 38.2, platelet count 256 Chemistry reveals a sodium of 147, potassium 3.8, carbon dioxide 27, anion gap 16.8, BUN 14, creatinine 0.9, glucose 96, magnesium 1.5, AST 15, ALT 26 Patient will be given an oral dose of magnesium oxide 400 mg p.o. x1 dose. 03/28/21 19:29 Nursing staff reports to me that the patient's headache pain is much improved as well as her nausea however does not claim completely resolved. She is now complaining of feeling very anxious. She states she does have a history of anxiety. I have ordered for the patient to receive Ativan 0.5 mg IV x1 dose. 03/28/21 20:27 Patient is feeling much better. And is requesting to go home. Departure - Departure Time of Disposition: 20:27 Disposition: Home, Self-Care 01 Condition: Good Clinical Impression: Migraine - Discharge Information Instructions: Migraine Headache, [id number], Pain Medicine Instructions, [id number] Referrals: Shelly Johnson [facility] [Primary Care Provider] - Forms: ED Department Discharge Additional Instructions: You were seen in the emergency department today with complaints of headache. CT scan was initially completed to rule out aneurysm or stroke. This test was negative. You were given IV fluids, nausea medication, pain medication and Benadryl for the headache. You then had some anxiety see you were given Ativan. He states this combination of medications helped alleviate your headache. Recommend that you go home and rest in a dark quiet room. Drink plenty of fluid s. Should your condition worsen or change, do not hesitate to return to the emergency department. Sepsis Event Note (ED) - Evaluation Sepsis Screening Result: No Definite Risk - Focused Exam Vital Signs: Vital Signs Temp Pulse Resp BP Pulse Ox 03/28/21 17:20 98.2 F 103 H 20 190/88 H 93 L - My Orders Last 24 Hours: My Active Orders 03/28/21 17:35 Sodium Chloride 0.9% [Saline Flush] 10 ml FLUSH ASDIRECTED PRN Saline Lock Insert [OM.PC] Stat - Assessment/Plan Last 24 Hours: My Active Orders 03/28/21 17:35 Sodium Chloride 0.9% [Saline Flush] 10 ml FLUSH ASDIRECTED PRN Saline Lock Insert [OM.PC] Stat
--- NOTE | 2021-03-28 18:26 | CT ---
Head CT Technique: Multiple axial sections through the brain were obtained. Intravenous contrast was not utilized. Reconstructed coronal and sagittal images were obtained. Comparison: Previous head CT study of 04/28/17. Findings: Stent is seen on the left side which extends from the carotid siphon into the left M1 segment. This is stable from prior head CT study. Ventricles along with basal cisterns and sulci over the convexities appear within normal limits for the patient's age. Mild widening of the right sylvian fissure which is a stable finding from prior exam. Slight area of diminished density is seen in this area which is also stable. There is an area of encephalomalacia within the posterior right occipital lobe which is also stable. No other abnormal parenchymal densities are seen. No evidence of intracranial hemorrhage is seen. No midline shift or mass-effect is seen. Bone window settings were reviewed which show no acute calvarial abnormality. Visualized mastoid sinuses and paranasal sinuses show nothing acute. Impression: 1. Findings as described above which are stable. 2. Nothing acute is appreciated on noncontrast head CT exam. Diagnostic code #2
[2021-03-28] MEDS ORDERED: diphenhydrAMINE 50 MG/ML SDV IVPUSH ONE (18:35)
[2021-03-28] MEDS ORDERED: Ketorolac 30 MG/ML SDV IVPUSH ONE (18:35)
[2021-03-28] MEDS ORDERED: Metoclopramide 10 MG/2 ML SDV IVPUSH ONE (18:35)
[2021-03-28] MEDS ORDERED: Sodium Chloride 0.9% 1,000 ML IV ONE (18:35)
[2021-03-28] MEDS ORDERED: Magnesium Oxide 400 MG Tab PO ONE (18:40)
[2021-03-28] MEDS ORDERED: LORazepam 2 MG/ML SDV IVPUSH ONE (19:28)
== END 2021-03-28 20:40 | disposition home or self-care (01) ==
LOC: JD.ED 16:42
DX: G43.909 Migraine, unspecified, not intractable, without status migrainosus (principal); E78.00 Pure hypercholesterolemia, unspecified; I10 Essential (primary) hypertension; E11.9 Type 2 diabetes mellitus without complications; E03.9 Hypothyroidism, unspecified; Z79.82 Long term (current) use of aspirin; Z79.84 Long term (current) use of oral hypoglycemic drugs; Z79.899 Other long term (current) drug therapy
CPT/HCPCS: 36415; 70450; 80053; 83735; 85025; 96374; 96375; 99284; A9270; J1200; J1885; J2060; J2765; J7030

== ENCOUNTER 2024-04-14 07:25 | Day surgery (SDC) | payer MEDICAID ==
[~2024-04-14 07:25] MED LIST changes: -Brimonidine 0.2% Ophth Soln 5 ML Bottle EYELF SCH; -Phenylephrine 2.5% Ophth Soln 2 ML Bot EYELF SCH; +Sodium Chloride 0.9% 10 ML Syringe FLUSH PRN; +Sodium Chloride 0.9% 10 ML Syringe FLUSH SCH; -Tropicamide 1% Ophth Soln 3 ML Bottle EYELF SCH
[2024-04-14] MEDS: Lactated Ringers 1,000 ML IV SCH (08:45)
[2024-04-14] MEDS ORDERED: fentaNYL 100 MCG/2 ML SDV ONE (09:15)
[2024-04-14] MEDS ORDERED: Lidocaine 2% 5 ML SDV ONE (09:15)
[2024-04-14] MEDS ORDERED: Propofol 200 MG/20 ML SDV ONE (09:15)
[2024-04-14 12:11] VITALS: BP 115/56; PULSE 75
== END 2024-04-14 11:36 | disposition home or self-care (01) ==
LOC: JD.SDS 07:25
PROVIDERS: ATTEND Surgery
DX: Z12.11 Encounter for screening for malignant neoplasm of colon (principal); J45.909 Unspecified asthma, uncomplicated; E11.9 Type 2 diabetes mellitus without complications; I10 Essential (primary) hypertension; F41.8 Other specified anxiety disorders; H34.8122 Central retinal vein occlusion, left eye, stable; E78.00 Pure hypercholesterolemia, unspecified; E03.9 Hypothyroidism, unspecified; G47.33 Obstructive sleep apnea (adult) (pediatric); Z79.890 Hormone replacement therapy; Z79.82 Long term (current) use of aspirin; Z79.84 Long term (current) use of oral hypoglycemic drugs; Z79.899 Other long term (current) drug therapy; Z88.8 Allergy status to other drugs, medicaments and biological substances
CPT/HCPCS: 45378; J2704; J3010; J7120; J3490